=== PATIENT | female | born 1985 | race African-American/Black ===

== ENCOUNTER 2025-02-09 05:16 | Emergency (ER) | payer BC, SELFPAY ==
[2025-02-09] VITALS (20 sets, daily range): BP systolic 122–146; BP diastolic 81–91; PULSE 65–85; RESP 14–22; TEMP 36.6; O2SAT 96–100
--- OUTSIDE RECORDS SUMMARY | 2025-02-09 05:18 | XMS_ITS | Encounter Summary ---
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 Name Role Phone Alonzo Gibbons DO Primary Care Provider [phone] Audie Dominguez DPT Unavailable [phone] No, Physician Primary Care Provider [phone] Alonzo Gibbons DO Primary Care Provider [phone] Eleuterio Willard MD Primary Care Provider [phone] Xochilt Kruse NP Primary Care Provider [phone] Eleuterio Willard MD Primary Care Provider [phone] Reason for Visit * Reason Onset Date Comments Prior Auth 09/06/2019 Gabapentin 300mg Encounter Details Date Type Department Care Team (Late st Contact Info) Description 09/06/2019 Telephone [facility] [address] 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 Author CCM Chronic Pain Care Plan Chronic Care Management No change(07/12 9:03 AM SUPERVISOR [employer]) No Pamella Finley, LEANNA Note: Problem: Chronic Pain Goals: 1. Minimize further functional decline 2. Maximize quality of life 3. Control pain Strategies: - Activity/exercise program recommendation - Conservative stepwise pain medicine strategy with multi-disciplinary approach - Recommend healthy lifestyle strategies and compensatory methods as needed documented as of this encounter Visit Diagnoses Not on filedocumented in this encounter Care Teams Welding Setter Relationship Specialty Start Date End Date Alonzo Gibbons DO PCP - General Internal Medicine 07/05/19 10/04/19 No, Physician PCP - General 10/05/19 10/09/19 Alonzo Gibbons DO PCP - General 10/10/19 03/20/20 Eleuterio Willard MD PCP - General Family Medicine 03/21/20 06/05/20 Xochilt Kruse NP PCP - General 06/06/20 04/02/21 Eleuterio Willard MD PCP - General Family Medicine 04/03/21 Audie Dominguez DPT [id number] [facility] [address] [place] [address] Physical Therapist Physical Therapy 09/08/19 documented as of this encounter
--- OUTSIDE RECORDS SUMMARY | 2025-02-09 05:18 | XMS_ITS | Clinical Summary ---
Author Organization [facility] Address [address] [place] [address] Phone Care Team Providers Care [place]imer[place] Tower Loader Name Role Phone Unavailable Primary Care Provider Unavailabl e Allergies No known active allergies Medications Phentermine HCl 37.5 MG Capsule Take by mouth. Active Social History Tobacco Use Types Packs/Day Years Used Date Smoking Tobacco: Never Assessed Comments Unknown Sex and Gender Information Value Date Recorded Sex Assigned at Not on file Legal Sex Female 8:49 AM CDT Gender Identity Not on file Sexual Orientation Not on file Plan of Treatment Health Maintenance Due Date Last Done Comments Hepatitis C Virus (HCV) Screening 1985 TdaP Immunization 1985 Human Papillomavirus (HPV) Immunization (1 - 3-dose series) 2000 Hepatitis B Immunization (3 of 3 - 3-dose series) 05/11/2001 03/16/2001, 10/23/1999 Pap Smear 2006 Cervical Cancer Screening (CCS) 10/05/2015 HPV/Cotest 10/05/2015 SARS-COV-2 Immunization ( season) 2024 11/19/2020, 10/29/2020 Influenza Immunization (#1) 2025 Respiratory Syncytial Virus (RSV) Immunization (Adult) (1 - 1-dose 75+ series) 2060 DTaP/Tdap/Td Immunization Discontinued 2000, 03/21/1991, 08/05/1988, Additional history exists Meningococcal Immunization (ACWY) Aged Out No longer eligible based on patient's age to complete this topic Pneumococcal Immunization Combined Aged Out No longer eligible based on patient's age to complete this topic Rotavirus Immunization Aged Out No lo nger eligible based on patient's age to complete this topic
--- OUTSIDE RECORDS SUMMARY | 2025-02-09 05:18 | XMS_ITS | Clinical Summary ---
Author Organization [facility] Address Formerly [facility] [place] [address] Care Team Providers Care Sales Support Coordinator Name Role Phone Audie DominguezFranky DPT Unavailable [phone] Eleuterio Willard MD Primary Care Provider [phone] Allergies No known active allergies Medications CALCIUM ORAL Take 1 tablet by mouth daily Active iron bisgly,ps-FA-B-C #12-succ 65 mg-65 mg -1,000 mcg (24) tablet Take by mouth daily Active multivitamin capsule Take 1 capsule by mouth daily Active Denta 5000 Plus 1.1 % cream USE DIRECTED, TWICE A DAY 2 Active ergocalciferol (VITAMIN D) 50,000 unit capsuleIndicatio ns:Vitamin D deficiency Take 1 capsule (50,000 Units total) by mouth once a week 12 capsule 3 4 Active vitamin B complex capsule Take 1 capsule by mouth daily Active clobetasoL (CLOBEX) 0.05 % shampoo PLEASE SEE ATTACHED FOR DETAILED DIRECTIONS 5 Active spironolactone (ALDACTONE) 100 mg tablet TAKE ONE TABLET BY MOUTH DAILY WITH A FULL GLASS OF WATER. 5 Active norethindrone-et hinyl estradiol-iron (Loestrin Fe 1.5/30, 28-Day,) 1.5 mg-30 mcg per tablet Take one tablet PO q daily. Skip placebo week and go onto next pill pack. 28 tablet 13 5 Active fluconazole (DIFLUCAN) 150 mg tablet Take 1 tablet (150 mg total) by mouth every 3 (three) days 3 tablet 5 Active Additional Information Patient not taking.Reported on 12/27/2024 phentermine-topi ramate 11.25-69 mg capsule, ER multiphase 24 hrIndications:Cl ass 3 severe obesity due to excess calories without serious comorbidity with body mass index (BMI) of 40.0 to 44.9 in adult Take 1 tablet by mouth daily 30 capsule 2 5 03/27/20 25 Active phentermine 15 mg capsuleIndicatio ns:Class 3 severe obesity due to excess calories without serious comorbidity with body mass index (BMI) of 40.0 to 44.9 in adult Take 1 capsule (15 mg total) by mouth every morning 30 capsule 2 5 04/16/20 25 Active topiramate (TOPAMAX) 25 mg tabletIndication s:Class 3 severe obesity due to excess calories without serious comorbidity with body mass index (BMI) of 40.0 to 44.9 in adult Take 1 tablet (25 mg total) by mouth 2 (two) times a day 60 tablet 2 5 04/16/20 25 Active Active Problems Problem Noted Date Diagnosed Date Vitamin D deficiency 11/03/2022 Chronic vaginitis 11/03/2022 Acute pain of left knee 02/19/2022 Assessment & Plan (02/19/2022 3:46 PM CDT): Overall Condition Chronic Condition: Uncontrolled. Treatment: New Medication: Medroldose pack, Imaging: Consider Xray if symptoms persisit. and Referral: Consider Physical Therapy. Follow up PRN Disorder of both eustachian tubes 02/19/2022 Assessment & Plan (02/19/2022 3:45 PM CDT): Overall Condition New Acute Problem. Treatment: New Medication: MedroldosePack. If hearing doesn't improve, consider ENT. Follow up in 6 months Vaginal discharge 02/17/2022 Assessment & Plan (02/17/2022 6:23 PM CDT): Will send swab for pathology evaluation. Will notify pt of results of this and blood tests as they become available. Routine screening for STI (sexually transmitted infection) 02/17/2022 Frequency of urination 01/01/2022 Assessment & Plan (01/01/2022 4:19 PM CDT): Acute-obtain urine sample for POCT, + for blood, on menses, see plan of care for hematuria. Epigastric pain 01/01/2022 Assessment & Plan (01/01/2022 4:24 PM CDT): Acute-advised to eat bland foods and avoid foods that precipitate symptoms. Informed can take Pepcid AC once or twice daily 1/2 hour before meals for symptom management. Instructed to go to ER for worsening or new symptoms, to follow-up with PCP if symptoms continue. Acute right lower quadrant pain 01/01/2022 Assessment & Plan (01/01/2022 4:25 PM CDT): Recent onset-ordered stat lab work. A CT of abdomen and pelvis was ordered, advised should be receiving a call to schedule test. Encouraged to eat bland foods and stay hydrated. Informed can take probiotic daily for diarrhea. Instructed to go to ER for worsening or new symptoms, to follow-up with PCP if symptoms continue. Anorexia 01/01/2022 Assessment & Plan (01/01/2022 4:25 PM CDT): Recent onset-ordered stat lab work. A CT of abdomen and pelvis was ordered, advised should be receiving a call to schedule test. Encouraged to eat bland foods and stay hydrated. Informed can take Pepcid AC once or twice daily 1/2 hour before meals for epigastric pain. Instructed to go to ER for worsening or new symptoms, to follow-up with PCP if symptoms continue. Diarrhea 01/01/2022 Assessment & Plan (01/01/2022 4:23 PM CDT): Acute-advised to eat bland foods and avoid foods that precipitate symptoms. Informed can take a daily probiotic for symptom management. Instructed to go to ER for worsening or new symptoms, to follow-up with PCP if symptoms continue. Hematuria 01/01/2022 Assessment & Plan (01/01/2022 4:18 PM CDT): New dewxhcy-cm-zrapmw urine test + for blood, likely menstrual, sent for a urine culture due to symptoms of abdominal pain and urinary frequency. Tremor, unspecified 10/14/2021 Mild episode of recurrent major depressive disor geoff 10/14/2021 Assessment & Plan (10/14/2021 10:06 AM CDT): Overall Condition Chronic Condition: Uncontrolled and New Diagnosis. Treatment: New Medication: Lexapro, Referral: Psych Counselling and Recommended Therapeutic Lifestyle Modification Follow up in 6 months Chest pain 04/03/2021 Assessment & Plan (04/03/2021 4:18 PM CDT): Atypical chest pain likely noncardiac related. However we will have Cardiology consult consider a stress test or Holter monitor. EKG was read unremarkable for any acute ST changes. Normal sinus rhythm. Tachycardia 04/03/2021 Assessment & Plan (04/03/2021 4:18 PM CDT): Patient had measured tachycardia multiple location however patient denies of having any palpitation. Patient also been having atypical chest pain for last 3 weeks. Will do Holter monitor rule out any arrhythmias. Abnormal weight gain 03/04/2020 Assessment & Plan (03/04/2020 11:55 AM CDT): Overall Condition: New Acute Problem Treatment: New Medication: Phentermine. Follow up in 1 month Atypical glandular cells of undetermined significance (ANDREI) on cervical Pap smear 11/09/2019 Papanicolaou smear of cervix with positive high risk human papilloma virus (HPV) test 11/09/2019 s/p right L5-S1 microdiscectomy on 10/10/[address] 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 Uncontrolled. Goal: 175lb Recommend Nutritional every other Wednesday Seminar. Recommended Medication :Increase Qsymia 11.25mg Assessment & Plan (06/02/2021 8:32 AM CDT): Notes: Minimal/ sheeba-operative risk for Mild Risk Surgery. Medically clear for Bariatric surgery on Tentative Overal Risk Factors Dx: Morbid Obesity. Recommedations: Pending Labs prior to surgery: WNL. pending EKG prior to Surgery: Not Recommneded. Referral clearance needed: None. 07/14/2012 Resolved Problems Problem Noted Date Diagnosed Date Resolved Date History of classical section 07/27/2012 09/25/2019 Overview (08/14/2019): 12/2011 classical documented for breech, and incompetent cervix Encounters Date Type Department Care Team Description 12/27/2024 2:15 PM CDT Office Visit [facility] Family Medicine at [address] [place] [address] Eleuterio Willard MD Class 3 severe obesity due to excess calories without serious comorbidity with body mass index (BMI) of 40.0 to 44.9 in adult ([facility]) (Primary Dx) 12/19/2024 Orders Only [facility] Obstetrical Gynecology [address] [place] [address] [address] [place] [phone] Rima Diana MD 12/18/2024 1:39 PM CDT - 12/18/2024 11:59 PM CDT Hospital Encounter [facility] Office Building [address] [place] [phone] Well woman exam with routine gynecological exam; Vaginal itching; Screening for STDs (sexually transmitted diseases) Discharge Disposition: Discharge to home or self care 12/18/2024 11:00 AM CDT Office Visit [facility] Obstetrical Gynecology [address] [place] [phone] Rima Diana MD Well woman exam with routine gynecological exam (Primary Dx); Vaginal itching; Screening for STDs (sexually transmitted diseases) 12/18/2024 Results Follow-Up [facility] Obstetrical Gynecology [address] [place] [phone] Rima Diana MD Vaginitis panel Vaginal, Pap and High Risk HPV and Genotyping (Cytology Component) 12/06/2024 Results Follow-Up [facility] Obstetrical Gynecology [address] [place] [address] [address] [place] [phone] Rima Diana MD Urine culture Urine, clean voided, N. gonorrhoeae/C. trachomatis Amplification Vaginal, Vaginitis panel Vaginal 12/05/2024 11:24 AM CDT - 12/05/2024 11:59 PM CDT Hospital Encounter [facility] Office Building [address] [place] [address] Vaginal itching Discharge Disposition: Discharge to home or self care 12/05/2024 10:00 AM CDT Clinical Support [facility] Obstetrical Gynecology [address] [place] [phone] Vaginal itching (Primary Dx) 11/23/2024 Telephone [facility] Family Medicine at [place] [address] [facility] [address] [place] [phone] Eleuterio Willard MD Prior Auth (PA on QSYMIA) from Last 3 Months Immunizations Immunization Administration Dates Next Due DTP 03/21/1991, 9,07/11/1986,04/18,1985 Hep A, Adult 06/10/2009 Hep B Vaccine 06/10/2009 Hep B, Unspecified 03/16/2001,10/23/1999 Influenza, Trivalent, Preser vative Free, Intramuscular 04/27/2024 Influenza, Unspecified 04/02/2024(Deferr ed: Patient decision),06/17/2022,06/02/2019,2012 MMR 03/21/1991,03/26/1989 OPV 03/21/1991, 9,07/11/1986,04/18,1985 Pfizer Sars-Cov-2 Bivalent V accination (12+ YRS) 07/20/2022(Deferred: Patient Refused) Pfizer Sars-Cov-2 Bivalent V accination (5-11 YRS) 07/20/2022(Deferred: Patient Refused) Td, adsorbed 03/31/2001 Tdap 07/19/2024,08/16/2012 Tetanus toxoid, adsorbed 06/10/2009 Surgical History Surgery Date Site/Laterality Comments TUBAL LIGATION WRIST SURGERY COMBINED LAMINECTOMY AND JOSE GUADALUPE RODISECTOMY OF THORACIC / LUMBAR SPINE Medical History Medical History Date Comments Leg pain Weakness Muscle pain Loss of coordination Chronic pain disorder Low back pain DDD (degenerative disc disease), lumbar History of transfusion 08/2012 post misc arriage Family History Medical History Relation Name Comments No Known Problems Brother Diabetes Father Ana Plunkett No Known Problems Mother No Known Problems Sister Breast cancer Neg Hx Ovarian cancer Neg Hx Uterine cancer Neg Hx Relation Name Status Comments Brother Alive Father Ana Plunkett Alive Mother Alive Sister Alive Social History Tobacco Use Types Packs/Day Years Used Date Smoking Tobacco: Never Smokeless Tobacco: Never Tobacco Cessation:Counseling Given: Not Answered Alcohol Use Standard Drinks/Week Comments Yes 0 (1 standard drink = 0.6 oz pur e alcohol) AUDIT-C Answer Date Recorded Q1: How often do you have a drink containing alc ohol? Monthly or less 12/27/2024 Q2: How many drinks containi ng alcohol do you have on a typical day when you are drinking? 1 or 2 12/27/2024 Q3: How often do you have si x or more drinks on one occasion? Less than monthly 12/27/2024 PHQ-2 Answer Date Recorded PHQ-2 Total Score (If total score is 3 or more points, staff should administer the PHQ-9) 0 12/27/2024 PHQ-9 Answer Date Recorded PHQ-9 Total Score 0 12/27/2024 Comments No Sex and Gender Information Value Date Recorded Sex Assigned at Not on file Legal Sex Female 7:33 AM MOTHER'S HELPER Gender Identity Female 08/12/2021 12:04 PM MOTHER'S HELPER Sexual Orientation Straight 08/12/2021 12 :04 PM MOTHER'S HELPER Obstetrics History Para Term AB IAB SAB Ectopic Multiple Livin g Live Births 5 4 1 3 1 0 1 0 0 2 2 Date Outcome GA Total Labor Labor/2nd/3rd Weight Sex Type Anes PTL Gerda A1 A5 Name Clin SAB Term 2004 21w 0d Demis e Comments:PPROM at 18 w eeks, delivered stillborn 3 weeks later 2007 34w 0d Y Livin g Comments:PPROM at 32 w eeks 2011 25w 0d C-S j incis Spinal Livin g Comments:breech at 25 weeks with incompetent cervix Comments Last Filed Vital Signs Vital Sign Reading Time Taken Comments Blood Pressure 120/80 12/27/2024 2:25 PM CDT Pulse 86 12/27/2024 2:25 PM CDT Temperature 36.7 C (98.1 F) 12/27/2024 2:25 PM CDT Respiratory Rate 16 12/27/2024 2:25 PM CDT Oxygen Saturation 98% 12/27/2024 2:25 PM CDT Inhaled Oxygen Concentration - - Weight 115.4 kg (254 lb 6.4 oz) 12/27/2024 2:25 PM CDT Height 167.6 cm (5' 6) 12/27/2024 2:25 PM CDT Body Mass Index 41.06 12/27/2024 2:25 PM CDT Plan of Treatment Health Maintenance Due Date Last Done Comments Varicella Vaccines (1 of 2 - 13+ 2-dose series) 1998 Covid-19 Vaccine ( season) 2024 11/19/2020, 10/29/2020 Cervical Cancer Screening 12/18/20252024, 12/18/2024, 11/05/2023, Additional history exists Regular Well Visit/Exam 18-64 12/18/2025 12/18/2024, 11/08/2023, 11/05/2023, Additional history exists Depression Screening 12/27/2025 12/27/2024, 12/27/2024, 11/08/2023, Additional history exists DTaP/Tdap/Td Vaccine (8 - Td or Tdap) 07/19/2034 07/19/2024, 08/16/2012, 06/10/2009, Additional history exists Hepatitis B Screening Completed 06/10/2009 , 03/16/2001, 10/23/1999 Hepatitis C Screening Completed 02/19/2022, 013 Influenza Vaccine Completed 04/27/2024, , 06/02/2019, Additional history exists HPV Vaccines Aged Out No longer eligi ble based on patient's age to complete this topic Pneumococcal vaccine <65 Aged Out No longer eligible based on patient's age to complete this topic Goals Goal Patient Goal Type Associated Problems Recent Progress Patient-Stated? Author CCM Chronic Pain Care Plan Chronic Care Management No change(07/12 9:03 AM MOTHER'S HELPER) No Pamella Finley, LEANNA Note: Problem: Chronic Pain Goals: 1. Minimize further functional decline 2. Maximize quality of life 3. Control pain Strategies: - Activity/exercise program recommendation - Conservative stepwise pain medicine strategy with multi-disciplinary approach - Recommend healthy lifestyle strategies and compensatory methods as needed Procedures Procedure Name Priority Date/Time Associated Diagnosis Comments PAP AND HIGH RISK HPV, REFLEX TO GENOTYPING Routine 12/18/2024 11:35 AM CDT Well woman exam with routine gynecological exam HIGH RISK HPV DNA DETECTION WITH GENOTYPING Routine 12/18/2024 11:35 AM CDT Well woman exam with routine gynecological exam N. GONORRHOEAE/C. TRACHOMATIS AMPLIFICATION Routine 12/18/2024 11:35 AM CDT Screening for STDs (sexually transmitted diseases) VAGINITIS PANEL Routine 12/18/2024 11:35 AM CDT Vaginal itching VAGINITIS PANEL Routine 12/05/2024 10:35 AM CDT Vaginal itching N. GONORRHOEAE/C. TRACHOMATIS AMPLIFICATION Routine 12/05/2024 10:35 AM CDT Vaginal itching URINE CULTURE Routine 12/05/2024 10:35 AM CDT Vaginal itching HEPATITIS PANEL, ACUTE Routine 02/19/2022 3:01 PM CDT Routine screening for STI (sexually transmitted infection) from Last 3 Months or Most Recently Relevant to Health Maintenance Results * High Risk HPV DNA Detection with Genotyping (Molecular component) (12/18/2024 11:35 AM CDT) HPV HR 16 Not Detected Not Detected [facility] Comment:Testing performed by : [facility], [address] [place]., [address] HPV HR 18 Not Detected Not Detected [facility] Comment:Testing performed by : [facility], [address] [place]., [address] HPV HR Non 16/18 Not Detected Not Detected [facility] Comment: Interpretive Data Nucleic acid amplification for detection of high-risk Human Papilloma virus (HPV) is performed by the Talita Ivy 6800 HPV test. This assay specifically detects HPV-16 and HPV-18 genotypes. The following HPV genotypes are detected as high-risk HPV: HPV-31, 33, 35, ,39, 45, 51, 52, 56, 58, 59, 66, and 68. This assay has been approved by the [place] Food and Drug Administration for detection of HPV in cervical specimens collected by a physician using an endocervical brush/spatula or cervical broom and placed in the ThinPrep Pap Test PreservCyt collection containers. The performance characteristics of this test have been verified by the [facility] Molecular Infectious Disease laboratory. Correlate with separately reported cytology results, as applicable. Interpretive data last revised 23 Testing performed by: [facility], [address] [place]., [address] Endocervical 12/18/2024 11:3 5 AM CDT 12/19/2024 8:49 AM CDT Narrative CERNER - 12/19/2024 7:06 PM CDT Clinical history and diagnosis->screening Testing type->Screening Last menstrual period (date if known)->12/01/24 Rima Diana MD LAB BODY FLUIDS AND STOOL S ORDERABLES Final Result [facility] [address] [facility] Department [place] [address] [facility] * Pap and High Risk HPV and Genotyping (Cytology Component) (12/18/2024 11:35 AM CDT) Thin prep (Pap test) 12/18/2024 11:35 AM CDT 12/19/2024 8:06 AM CDT Narrative [facility] - 12/26/2024 9:09 AM CDT EPIC results best viewed via link to PDF [facility] [place] [address] Note to Patients: This report may contain a detailed description of human tissue sent by a health care provider to the laboratory for pathologic evaluation. The content of this report is essential for diagnosis and may provide important critical findings. This information may be unfamiliar to patients to review without a medical professional present. It is advised that the patient review this report in the presence of a health care provider who can answer questions and explain the details. CYTOPATHOLOGY REPORT FINAL Patient Name: ISAIAH ALEJO Gender: Lu : 1985 (Age: 39) Address: [address] [place] [phone] Hospital #: [id number] Service: DEFAULT Location: Patient Type: [facility] SPECIMEN Taken: 12/18/2024 Received: 12/19/2024 Accessioned: 12/19/2024 Reported: 12/26/2024 Physician(s): Rima Diana M.D. FINAL INTERPRETATION SOURCE OF SPECIMEN Liquid based Thin Prep pap with HPV: STATEMENT OF ADEQUACY - Satisfactory for evaluation - Endocervical cells/transformation zone sample present GENERAL CATEGORIZATION: - Negative for squamous intraepithelial lesion or malignancy Comments (Normal-Negative for High Risk HPV) HPV HR 16- Not detected HPV HR 18-Not detected HPV HR non 16/18- Not detected Interpretive Data Nucleic acid amplification for detection of high-risk Human Papilloma virus (HPV) is performed by the Talita Ivy 6800 HPV test. This assay specifically detects HPV- 16 and HPV-18 genotypes. The following HPV genotypes are detected as high-risk HPV: HPV-31, 33, 35, 39, 45, 51, 52, 56, 58, 59, 66, and 68. This assay has been approved by the [place] Food and Drug Administration for detection of HPV in cervical specimens collected by a physician using an endocervical brush/spatula or cervical broom and placed in the ThinPrep Pap Test PreservCyt collection containers. The performance characteristics of this test have been verified by the [facility] Molecular Infectious Disease laboratory. Correlate with reported cytology results, as applicable. Interpretive data last revised 23 [facility]/12/26/2024 09:09 DEN Smallwood(ASCP) Report Electronically Reviewed and Signed Out By DEN Smallwood(ASCP) 12/26/2024 09:09:20 Cervicovaginal Cytology (Pap Test) Disclaimer: The Pap test is a screening test used to detect cervical cancer and its precursors; it is not a diagnostic procedure. False negative and false positive results do occur. Pap test results should be interpreted in the context of pertinent clinical information and biopsy results as indicated. [facility] Clinical Laboratory Improvement Amendments (CLIA) mandate that cytologic and histologic results be correlated for laboratory quality lead & improvement standards. FOR ALL HIGH-GRADE CASES we request submission of follow-up histological material and/or reports that have not been previously provided so that we may fulfill said required standards. Gross Description A. Liquid based Thin Prep pap with HPV: Cervical/vaginal - Screening ThinPrep Clinical Diagnosis and History Last Menstrual Period: 12/01/24 The patient is a 39 year old female with screening. Report Images and scanned documents, if included only viewable in PDF version The performance characteristics of some immunohistochemical stains, in-situ hybridization and fluorescence in-situ hybridization tests and immunophenotyping by flow cytometry cited in this report (if any) were determined by the Surgical Pathology Department at [facility] as part of an ongoing customer quality specialist program and in compliance with federally mandated regulations drawn from the Clinical Laboratory Improvement Act of 1988 (CLIA '88). Some of these tests rely on the use of analyte specific reagents and are subject to specific labeling requirements by the [place] Food and Drug Administration. Such diagnostic tests may only be performed in a facility that is certified by the Department of Health and Human Services as a high complexity laboratory under CLIA '88. The FDA has determined that such clearance or approval is not necessary. This test is used for clinical purposes. It should not be regarded as investigational or for research. Nevertheless, federal rules concerning the medical use of analyte specific reagents require that the following disclaimer be attached to the report: This test was developed and its performance characteristics determined by the Surgical Pathology Department of [facility]. It has not been cleared or approved by the U. S. Food and Drug Administration. us Rima Diana MD LAB CYTOLOGY ORDERABLES F inal Result [facility] * N. gonorrhoeae/C. trachomatis Amplification Endocervical (12/18/2024 11:35 AM CDT) C. trachomatis Not Detected [facility] Comment:Testing performed by : [facility], [address] [place] [address] N. gonorrhoeae Not Detected [facility] Comment: Interpretive Data This assay detects Chlamydia trachomatis and Neisseria gonorrhoeae by nucleic acid amplification testing (NAAT). This assay has been cleared by the [place] Food and Drug administration. The performance characteristics of this test have been verified by the [facility] Molecular Infectious Disease laboratory. The performance characteristics of this test have not been evaluated in individuals less than 14 years of age. Current Interpretive Data was last revised on 2023. Testing performed by: [facility], [address] [place] [address] Endocervical (None) 12/19/19 11:35 AM CDT 12/18/2024 9:17 PM CDT us Rima Diana MD LAB MICROBIOLOGY - GENERA L ORDERABLES Final Result Performing Organization Address City/[facility]/ZIP Co de Phone Number [facility] Department [place] [address] [facility] * (ABNORMAL) Vaginitis panel Vaginal (12/18/2024 11:35 AM CDT) Bacterial Vaginosis Not Detected Not Detected Comment: A negative result does not preclude a possible infection. Results should be considered in conjunction with clinical presentation to determine the disease status. Testing performed by: [address] [address] [facility] Detected(A) Not Detected [facility] Comment: Roseanne species can be present as commensal organisms in women; results should be considered in conjunction with clinical presentation to determine the disease status. Testing performed by: [address] [address] Roseanne glabrata/ krusei Not Detected Not Detected GEORGINA Comment:Testing performed by : [address] [address] Trichomonas DNA Not Detected Not Detected GEORGINA Comment:Testing performed by : [address] [address] Vaginal 12/18/2024 11:3 5 AM CDT 12/18/2024 5:54 PM CDT [facility] - 12/18/2024 7:27 PM CDT The Cepheid Xpert Xpress MVP test detects DNA targets from anaerobic bacteria associated with bacterial vaginosis, Roseanne species associated with vulvovaginal candidiasis, and Trichomonas vaginalis by nucleic acid amplification testing (NAAT). Results should be interpreted in conjunction with other clinical data. This test cannot be used to assess therapeutic success or failure because target nucleic acids may persist following antimicrobial therapy. This test has been cleared by the [place] Food and Drug Administration to aid in the diagnosis of vaginal infections in symptomatic women ages 14 and older. The performance characteristics of this test have been verified by the [facility]. Rima Diana MD LAB MICROBIOLOGY - GENERA L ORDERABLES Final Result GEORGINA [address] [facility] Department [place] [address] * N. gonorrhoeae/C. trachomatis Amplification Vaginal (12/05/2024 10:35 AM CDT) Pathologist [facility] C. trachomatis Not Detected [facility] Comment:Testing performed by : [facility], [address] [place] [address]., [address] N. gonorrhoeae Not Detected GEORGINA Comment: Interpretive Data This assay detects Chlamydia trachomatis and Neisseria gonorrhoeae by nucleic acid amplification testing (NAAT). This assay has been cleared by the [place] Food and Drug administration. The performance characteristics of this test have been verified by the [facility] Molecular Infectious Disease laboratory. The performance characteristics of this test have not been evaluated in individuals less than 14 years of age. Current Interpretive Data was last revised on 2023. Testing performed by: [facility], [address] [place] [address]., [address] Vaginal (None) 12/05/2024 10 :35 AM CDT 12/05/2024 7:05 PM CDT Rima Diana MD LAB MICROBIOLOGY - GENERA L ORDERABLES Final Result Performing Organization Address [facility] Co de Phone Number [id number] Department [place] [address] [facility] * (ABNORMAL) Vaginitis panel Vaginal (12/05/2024 10:35 AM CDT) Pathologist [facility] Bacterial Vaginosis Not Detected Not Detected Comment: A negative result does not preclude a possible infection. Results should be considered in conjunction with clinical presentation to determine the disease status. Testing performed by: [address] [address] Roseanne group Detected(A) Not Detected GEORGINA Comment: Roseanne species can be present as commensal organisms in women; results should be considered in conjunction with clinical presentation to determine the disease status. Testing performed by: [address] [address] Roseanne glabrata/ krusei Not Detected Not Detected GE[facility]GINA Comment:Testing performed by : [facility], [address] [place] [address]., [address] Trichomonas DNA Not Detected Not Detected GEORGINA Comment:Testing performed by : [facility], [address] [place] [address]., [address] Vaginal 12/05/2024 10:3 5 AM CDT 12/05/2024 2:36 PM CDT Narrative [facility] - 12/05/2024 4:30 PM CDT The CepIS Decisions Xpert Xpress MVP test detects DNA targets from anaerobic bacteria associated with bacterial vaginosis, Roseanne species associated with vulvovaginal candidiasis, and Trichomonas vaginalis by nucleic acid amplification testing (NAAT). Results should be interpreted in conjunction with other clinical data. This test cannot be used to assess therapeutic success or failure because target nucleic acids may persist following antimicrobial therapy. This test has been cleared by the [place] Food and Drug Administration to aid in the diagnosis of vaginal infections in symptomatic women ages 14 and older. The performance characteristics of this test have been verified by the [facility]. Rima Diana MD LAB MICROBIOLOGY - GENERA L ORDERABLES Final Result GEORGINA [address] [facility] Department [place] [address] * (ABNORMAL) Urine culture Urine, clean voided (12/05/2024 10:35 AM CDT) Report Final Report: Less than 100,000 colonies/mL (clinically insignificant growth based on current clinical standards) Includes the following: Less than 100,000 colonies/mL Streptococcus agalactiae (Group B Streptococci) * * * * * * * * * * * * * * * * * * * * Resistance to penicillin in Group B Streptococcus has not been reported. Group B Streptococci are universally susceptible to beta-lactam antibiotics and vancomycin. Routine susceptibility testing is not performed. In penicillin allergic patients, please contact the laboratory at [phone] to request susceptibility testing * * * * * * * * * * * * * * * * * * * * This laboratory routinely screens urine cultures for any amount of Group B Streptococcus in reproductive age women. Recovery of this isolate may be significant in women, however, the recovery of this organism in small quantities in non- women represents contamination with periurethral lacey. (.) Comment:Testing performed by : [facility], [address] [place]., [address] Organism (CLINICALLY INSIGNIFICANT GROWTH [facility] Organism STREPTOCOCCUS AGALACTIAE (GROUP B STREPTOCOCCI) [facility] Urine, clean voided 12/05/2024 10:35 AM CDT 12/05/2024 6:53 PM CDT Narrative [facility] - 12/07/2024 12:31 AM CDT Testing performed by [facility] Microbiology Laboratory ([phone]) Rima Diana MD LAB MICROBIOLOGY - GENERA L ORDERABLES Final Result [facility] [address] [facility] Department [place] [address] * Hepatitis panel, acute (02/19/2022 3:01 PM CDT) Hep A IgM Nonreactive Nonreactive [facility] Comment: Interpretive Data: If Hep A IgM Ab is reported as Equivocal, a new sample should be drawn in two weeks for testing. Current interpretive data was last revised on 19. Hep B core IgM Nonreactive Nonreactive [facility] Comment: Interpretive Data If HepB Core IgM Ab is reported as Equivocal, a new sample should be drawn in two weeks for testing. Current interpretive data was last revised on 19. Hep C Ab Nonreactive Nonreactive [facility] Comment: Interpretive Data Nonreactive: Antibodies to HCV not detected. Does NOT exclude the possibility of recent exposure to HCV. Equivocal: Equivocal for HCV antibodies. Supplemental molecular testing will be automatically performed to determine infection status in accordance with current CDC screening recommendations. Reactive: Positive for HCV antibodies. This may represent current or past HCV infection. Supplemental molecular testing will be automatically performed to determine current infection status in accordance with current CDC screening recommendations. Interpretive data was last revised on 2019. HepBsAg Nonreactive Nonreactive GEORGINA LORENZO Blood 02/19/2022 3:01 PM CDT 02/19/2022 7:01 PM CDT Anita MILLS LAB MICROBIOLOGY - GENERAL ORDERABLES Final Result GEORGINA [address] [facility] Department [place] [address] from Last 3 Months or Most Recently Relevant to Health Maintenance Insurance [email or web address] ACCESS [email or web address] ACCESS [facility] ACCESS CHOICE Advance Directives For more information, please contact: [phone] * Full Code (Latest Code Status on File) Date Activated Date Inactivated Comments 10/10/2019 9:58 PM 10/11/2019 6:55 PM Care Teams Sales Support Coordinator Relationship Specialty Start Date End Date Eleuterio Willard MD [address] [facility] [address] [address] PCP - General Family Medicine 04/03/21 Audie Dominguez, DPT [address] [facility] [address] [address] Physical Therapist Physical Therapy 09/08/19
--- OUTSIDE RECORDS SUMMARY | 2025-02-09 05:18 | XMS_ITS | Referral Summary ---
Author Organization [facility] Address [address] [place] [address] Care Team Providers Care Gas Plant Operator Name Role Phone Audie Dominguez DPT Unavailable [phone] Eleuterio Willard MD Primary Care Provider [phone] Encounters Date Type Department Care Team Description 12/27/2024 2:15 PM CDT Office Visit [facility] Medical Group Family Medicine at [address] [place] [address] Eleuterio Willard MD Class 3 severe obesity due to excess calories without serious comorbidity with body mass index (BMI) of 40.0 to 44.9 in adult (HCC) (Primary Dx) 12/19/2024 Orders Only [facility] Medical Group Obstetrical Gynecology [address] [place] [address] [place] [phone] Rima Diana MD 12/18/2024 Results Follow-Up [facility] Group Obstetrical Gynecology [address] [place] [address] [address] [place] [phone] Rima Diana MD Vaginitis panel Vaginal, Pap and High Risk HPV and Genotyping (Cytology Component) 12/18/2024 1:39 PM CDT - 12/18/2024 11:59 PM CDT Hospital Encounter [facility] Medical Office Building [address] [place] [address] Well woman exam with routine gynecological exam; Vaginal itching; Screening for STDs (sexually transmitted diseases) Discharge Disposition: Discharge to home or self care 12/18/2024 11:00 AM CDT Office Visit [facility] Obstetrical Gynecology [address] [place] [phone] Rima Diana MD Well woman exam with routine gynecological exam (Primary Dx); Vaginal itching; Screening for STDs (sexually transmitted diseases) 12/06/2024 Results Follow-Up [facility] Obstetrical Gynecology [address] [facility] [address] [place] [phone] Rima Diana MD Urine culture Urine, clean voided, N. gonorrhoeae/C. trachomatis Amplification Vaginal, Vaginitis panel Vaginal 12/05/2024 11:24 AM CDT - 12/05/2024 11:59 PM CDT Hospital Encounter [facility] Medical Office Building [address] [place] [address] Vaginal itching Discharge Disposition: Discharge to home or self care 12/05/2024 10:00 AM CDT Clinical Support [facility] Obstetrical Gynecology [address] [place] [phone] Vaginal itching (Primary Dx) 11/23/2024 Telephone [facility] [place] [address] [facility] [address] [place] [phone] Eleuterio Willard MD Prior Auth ([place] on QSYMIA) from Last 3 Months Allergies No known active allergies Medications CALCIUM [...] & Plan (01/01/2022 4:18 PM CDT): New [id number] urine test + for blood, likely menstrual, [...] classical documented for breech, and incompetent cervix Immunizations Immunization Administration Dates Next Due DTP [...] 03/31/2001 Tdap 07/19/2024,08/16/2012 Tetanus toxoid, adsorbed 06/10/2009 Social History Tobacco Use Types Packs/Day Years [...] on file Legal Sex Female 7:33 AM PLATFORM CONSULTANT Gender Identity Female 08/12/2021 12:04 PM PLATFORM CONSULTANT Sexual Orientation Straight 08/12/2021 12 :04 PM PLATFORM CONSULTANT Last Filed Vital Signs Vital Sign Reading [...] 12/27/2024 2:25 PM CDT Plan of Treatment Not on file Goals Goal Patient Goal Type Associated Problems Recent Progress Patient-Stated? Author CCM Chronic Pain Care Plan Chronic Care Management No change(07/12 9:03 AM PLATFORM CONSULTANT) No Pamella Finley RN Note: Problem: Chronic Pain Goals: 1. Minimize [...] HPV HR 16 Not Detected Not Detected [facility] Comment:Testing performed by : [facility], [address] [place]., [address] HPV HR 18 Not Detected Not Detected GEORGINA LORENZO Comment:Testing performed by : [facility], [address] [place]., [address] HPV HR Non 16/18 Not Detected Not Detected GEORGINA LORENZO Comment: Interpretive Data Nucleic acid amplification for [...] this test have been verified by the [facility] Molecular Infectious Disease laboratory. Correlate with separately reported cytology results, as applicable. Interpretive data last revised 23 Testing performed by: [facility], [address] [place]., [address] Endocervical 12/18/2024 11:3 5 AM CDT 12/19/2024 8:49 AM CDT Narrative GEORGINA LORENZO - 12/19/2024 7:06 PM CDT Clinical history and diagnosis->screening Testing type->Screening Last menstrual period (date if known)->12/01/24 Rima Diana MD LAB BODY FLUIDS AND STOOL S ORDERABLES Final Result GEORGINA [address] [facility] [place] [address] [facility] * Pap and High Risk HPV and Genotyping (Cytology Component) (12/18/2024 11:35 AM CDT) Thin prep (Pap test) 12/18/2024 11:35 AM CDT 12/19/2024 8:06 AM CDT Narrative PATHOLOGY [facility] - 12/26/2024 9:09 AM CDT EPIC results best viewed via link to PDF [facility] [place] [address] Note to Patients: This report may contain [...] REPORT FINAL Patient Name: ISAIAH ALEJO Gender: F : 1985 (Age: 39) Address: [address] [place] [phone] Hospital #: [id number] Service: DEFAULT Location: Patient Type: [facility] SPECIMEN Taken: 12/18/2024 Received: 12/19/2024 Accessioned: 12/19/2024 [...] this test have been verified by the [facility] Molecular Infectious Disease laboratory. Correlate with reported cytology results, as applicable. Interpretive data last revised 23 [facility]/12/26/2024 09:09 DEN [place](ASCP) Report Electronically Reviewed [...] clinical information and biopsy results as indicated. [facility] Clinical Laboratory Improvement Amendments (CLIA) mandate that cytologic and histologic results be correlated for laboratory quality improvement specialist & improvement standards. FOR ALL HIGH-GRADE CASES [...] determined by the Surgical Pathology Department at [facility] as part of an ongoing quality control industrial engineer program and in compliance with federally mandated [...] determined by the Surgical Pathology Department of [facility]. It has not been cleared or approved by the [place]. S. Food and Drug Administration. Rima Diana MD LAB CYTOLOGY ORDERABLES F inal Result PATHOLOGY [facility] * N. gonorrhoeae/C. trachomatis Amplification Endocervical (12/18/2024 11:35 AM CDT) C. trachomatis Not Detected [facility] Comment:Testing performed by : [facility], [address] [place] [address], [address] N. gonorrhoeae Not Detected GEORGINA LORENZO Comment: Interpretive Data This assay detects Chlamydia trachomatis and Neisseria gonorrhoeae by nucleic acid amplification testing (NAAT). This assay has been cleared by the [place] Food and Drug administration. The performance characteristics of this test have been verified by the [facility] Molecular Infectious Disease laboratory. The performance characteristics of this test have not been evaluated in individuals less than 14 years of age. Current Interpretive Data was last revised on 2023. Testing performed by: [facility], [address] [place] [address]., [address] Endocervical (None) 12/19/19 11:35 AM CDT 12/18/2024 9:17 PM CDT Rima Diana MD LAB MICROBIOLOGY - GENERA L ORDERABLES Final Result GEORGINA LORENZO [address] [facility] [place] [address] [facility] * (ABNORMAL) Vaginitis panel Vaginal (12/18/2024 11:35 AM CDT) Pathologist [facility] Bacterial Vaginosis Not Detected Not Detected Comment: A negative result does not preclude a possible infection. Results should be considered in conjunction with clinical presentation to determine the disease status. Testing performed by: [address] [address] Roseanne group Detected(A) Not Detected [facility] Comment: Roseanne species can be present as commensal organisms in women; results should be considered in conjunction with clinical presentation to determine the disease status. Testing performed by: [address] [address] Roseanne glabrata/ krusei Not Detected Not Detected GEORGINA Comment:Testing performed by : [address] [address] Trichomonas DNA Not Detected Not Detected [facility] Comment:Testing performed by : [address] [address] Vaginal 12/18/2024 11:3 5 AM CDT 12/18/2024 5:54 PM CDT Narrative [facility] - 12/18/2024 7:27 PM CDT The CepFast PCR Diagnosticsid Xpert Xpress MVP test detects DNA targets [...] this test have been verified by the [facility]. us Rima Diana MD LAB MICROBIOLOGY - GENERA L ORDERABLES Final Result GEORGINA [address] [facility] [place] [address] * N. gonorrhoeae/C. trachomatis Amplification Vaginal (12/05/2024 10:35 AM CDT) Pathologist [facility] C. trachomatis Not Detected [facility] Comment:Testing performed by : [facility], [address] [place] [address] N. gonorrhoeae Not Detected GEORGINA Comment: Interpretive Data This assay detects Chlamydia trachomatis and Neisseria gonorrhoeae by nucleic acid amplification testing (NAAT). This assay has been cleared by the [place] Food and Drug administration. The performance characteristics of this test have been verified by the [facility] Molecular Infectious Disease laboratory. The performance characteristics of this test have not been evaluated in individuals less than 14 years of age. Current Interpretive Data was last revised on 2023. Testing performed by: [facility], [address] [place]., [address] Vaginal (None) 12/05/2024 10 :35 AM CDT 12/05/2024 7:05 PM CDT Rima Diana MD LAB MICROBIOLOGY - GENERA L ORDERABLES Final Result GEORGINA [address] [facility] [place] [address] [facility] * (ABNORMAL) Vaginitis panel Vaginal (12/05/2024 10:35 AM CDT) Pathologist [facility] Bacterial Vaginosis Not Detected Not Detected Comment: A negative result does not preclude a possible infection. Results should be considered in conjunction with clinical presentation to determine the disease status. Testing performed by: [address] [address] Roseanne group Detected(A) Not Detected [facility]A Comment: Roseanne species can be present as commensal organisms in women; results should be considered in conjunction with clinical presentation to determine the disease status. Testing performed by: [address] [address] Roseanne glabrata/ krusei Not Detected Not Detected [facility]A Comment:Testing performed by : [address] [address] Trichomonas DNA Not Detected Not Detected [facility]A Comment:Testing performed by : [address] [place] [address] Vaginal 12/05/2024 10:3 5 AM CDT 12/05/2024 2:[address] [facility] GEORGINA - 12/05/2024 4:30 PM CDT The Cepheid Xpert Xpress MVP [...] this test have been verified by the [facility]. Rima Diana MD LAB MICROBIOLOGY - GENERA L ORDERABLES Final Result GEORGINA [address] [facility] [place] [address] * (ABNORMAL) Urine culture Urine, [...] allergic patients, please contact the laboratory at [phone] to request susceptibility testing * * * [...] periurethral lacey. (.) Comment:Testing performed by : [facility], [address] [facility], [place]., [address] Organism (CLINICALLY INSIGNIFICANT GROWTH [facility] Organism STREPTOCOCCUS AGALACTIAE (GROUP B STREPTOCOCCI) [facility] Urine, clean voided 12/05/2024 10:35 AM CDT 12/05/2024 6:53 PM CDT Narrative [facility] - 12/07/2024 12:31 AM CDT Testing performed by [facility] Microbiology Laboratory ([phone]) Rima Diana MD LAB MICROBIOLOGY - GENERA L ORDERABLES Final Result [facility] [address] [facility] [place] [address] * Hepatitis panel, acute (02/19/2022 3:01 PM CDT) Hep A IgM Nonreactive Nonreactive [facility] Comment: Interpretive Data: If Hep A IgM Ab is reported as Equivocal, a new sample should be drawn in two weeks for testing. Current interpretive data was last revised on 19. Hep B core IgM Nonreactive Nonreactive [facility] Comment: Interpretive Data If HepB Core IgM Ab is reported as Equivocal, a new sample should be drawn in two weeks for testing. Current interpretive data was last revised on 19. Hep C Ab Nonreactive Nonreactive [facility] Comment: Interpretive Data Nonreactive: Antibodies to [...] last revised on 2019. HepBsAg Nonreactive Nonreactive [facility] Blood 02/19/2022 3:01 PM CDT 02/19/2022 7:01 PM CDT Anita MILLS LAB MICROBIOLOGY - GENERAL ORDERABLES Final Result JONNER MH [address] [facility] [place] [address] from Last 3 Months or Most Recently Relevant to Health Maintenance Insurance ANTHEM ACCESS ANTHEM ACCESS ANTHEM ACCESS CHOICE Advance Directives For more information, please contact: [phone] * Full Code (Latest Code Status on File) Date Activated Date Inactivated Comments 10/10/2019 9:58 PM 10/11/2019 6:55 PM Care Teams Gas Plant Operator Relationship Specialty Start Date End Date Eleuterio Willard MD [address] [place] [address] [facility] [place] [address] PCP - General Family Medicine 04/03/21 Audie Dominguez, DPT [address] [facility] [place] [address] [facility] [place] [address] Physical Therapist Physical Therapy 09/08/19
--- OUTSIDE RECORDS SUMMARY | 2025-02-09 05:18 | XMS_ITS | Encounter Summary ---
Author Organization [facility] Healthcare Address [address] [place] [address] Care Team Providers Care Senior Staff Psychologist Name Role Phone Audie DominguezFranky DPT Unavailable [phone] Eleuterio Willard MD Primary Care Provider [phone] Encounter Details Date Type Department Care Team (Latest Contact Info) Description 12/18/2024 Results Follow-Up [facility] Obstetrical Gynecology [address] [phone] Rima Diana MD [facility] [address] Vaginitis panel Vaginal, Pap and High Risk HPV and Genotyping (Cytology Component) Social History Tobacco Use Types Packs/Day Years Used Date Smoking Tobacco: Never Smokeless Tobacco: Never Alcohol Use Standard Drinks/Week Comments Yes 0 (1 standard drink = 0.6 oz pur e alcohol) AUDIT-C Answer Date Recorded Q1: How often do you have a drink containing alc ohol? Monthly or less 08/24/2024 Q2: How many drinks containi ng alcohol do you have on a typical day when you are drinking? 1 or 2 08/24/2024 Q3: How often do you have si x or more drinks on one occasion? Less than monthly 08/24/2024 PHQ-2 Answer Date Recorded PHQ-2 Total Score (If total score is 3 or more points, staff should administer the PHQ-9) 0 11/08/2023 Comments No Sex and Gender Information Value Date Recorded Sex Assigned at Not on file Legal Sex Female 7:33 AM DESIGN CONSULTANT Gender Identity Female 08/12/2021 12:04 PM DESIGN CONSULTANT Sexual Orientation Straight 08/12/2021 12 :04 PM DESIGN CONSULTANT documented as of this encounter Miscellaneous Notes * Result Encounter Note - Latasha Hines MA - 12/26/2024 1:55 PM CDT Normal pap letter sent via [employer] documented in this encounter Plan of Treatment Not on file documented as of this encounter Goals Goal Patient Goal Type Associated Problems Recent Progress Patient-Stated? Author CCM Chronic Pain Care Plan Chronic Care Management No change(07/12 9:03 AM DESIGN CONSULTANT) No Pamella Finley, LEANNA Note: Problem: Chronic Pain Goals: 1. Minimize further functional decline 2. Maximize quality of life 3. Control pain Strategies: - Activity/exercise program recommendation - Conservative stepwise pain medicine strategy with multi-disciplinary approach - Recommend healthy lifestyle strategies and compensatory methods as needed documented as of this encounter Visit Diagnoses Not on filedocumented in this encounter Care Teams Senior Staff Psychologist Relationship Specialty Start Date End Date Eleuterio Willard MD [address] [facility] [address] [place] [address] PCP - General Family Medicine 04/03/21 Audie Dominguez DPT [address] [facility] [address] [place] [address] Physical Therapist Physical Therapy 09/08/19 documented as of this encounter
--- OUTSIDE RECORDS SUMMARY | 2025-02-09 05:18 | XMS_ITS | Clinical Summary ---
Author Organization [facility] [employer] Address [address] [place] [address] Care Team Providers Care Coronary Clinical Specialist Name Role Phone Unavailable Primary Care Provider Unavailabl e Source Comments [facility] [employer],non-owned Affiliates and Associated Physician Practices is amultiple site organization consisting of ambulatory clinics and hospital sitesin [place], [place], [place] and [place]. This disclosure is being madepursuant to the Care Everywhere program and may not contain all information available regarding this patient. Last updated 18.[facility] [employer] Allergies No known active allergies Medications * Be aware that medications may not be up to date on this document. Alwaysverify current medications with the patient. Vitamins (DIS) TABS Take 1 Tab by mouth once daily. Active ibuprofen (MOTRIN) 600 MG tablet Take 1 Tab by mouth every 6 hours as needed for Pain. 60 Tab 0 08/16/2012 Active docusate sodium (COLACE) 100 MG capsule Take 1 Cap by mouth once daily. 60 Cap 1 08/16/2012 Active ferrous sulfate 325 (65 FE) MG tablet Take 1 Tab by mouth 2 times daily with morning and evening meal. 60 Tab 2 08/16/2012 Active Active Problems Problem Noted Date Diagnosed Date Supervision of other high-risk 012 Overview (06/09/2015): Abby with Dr. Cadena Dating by: 10wk documented US, unsure LMP Prenatals: B+ Ab:neg Hgb Elec: Pap: GC/CT: H/H/Plt: 12.6/37.8/306 on 06/09/12 QS: GCT: GBS: History of classical section 07/27/2012 Overview (07/27/2012): 12/2011 classical documented for breech, and incompetent cervix History of delivery, currently 07/27/2012 Overview (07/27/2012): G2 at 34 weeks, PPROM 32 weeks G3 at 25 weeks, breech and incompetent cervix Obesity 07/27/2012 Short interval between pregnancies complicating 07/27/2012 Vaginal bleeding before 22 weeks gestation 07/27 Overview (07/27/2012): At 10 weeks, and 11 weeks during June Immunizations Immunization Administration Dates Next Due HEP A VACCINE, ADULT 06/10/2009 HEP B VACCINE ADOL/ADULT 2 DOSE 06/10/2009 INFLUENZA VACCINE 08/16/2012 TDAP (7yrs+) 08/16/2012 TETANUS 06/10/2009 Family History Medical History Relation Name Comments Diabetes Father Hypertension Maternal Grandmother Relation Name Status Comments Father Maternal Grandmother Social History Tobacco Use Types Packs/Day Years Used Date Smoking Tobacco: Never Alcohol Use Standard Drinks/Week Comments No 0 (1 standard drink = 0.6 oz pur e alcohol) Comments Unknown Sex and Gender Information Value Date Recorded Sex Assigned at Not on file 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 Gender Identity Not on file Sexual Orientation Not on file Last Filed Vital Signs Vital Sign Reading Time Taken Comments Blood Pressure 132/82 08/16/2012 3:16 PM DOVETAILER Pulse 90 08/16/2012 3:16 PM DOVETAILER Temperature 36.8 C (98.3 F) 08/16/2012 3:16 PM DOVETAILER Respiratory Rate 18 08/16/2012 3:16 PM DOVETAILER Oxygen Saturation 100% 08/16/2012 8:00 AM DOVETAILER Inhaled Oxygen Concentration - - Weight 128.8 kg (284 lb) 08/15/2012 4:37 PM DOVETAILER Height 167.6 cm (5' 6) 08/15/2012 4:37 PM DOVETAILER Body Mass Index 45.84 08/15/2012 4:37 PM DOVETAILER Plan of Treatment Health Maintenance Due Date Last Done Comments HIV SCREENING 2000 HEPATITIS C SCREENING 09/30/2003 HEPATITIS B VACCINE (2 of 3 - 19+ 3-dose series) 07/08/2009 06/10/2009 HPV VACCINE (1 - 3-dose SCDM series) 2012 DTAP/TDAP/TD VACCINES (3 - T d or Tdap) 08/16/2022 08/16/2012, 06/10/2009 COVID-19 VACCINE (1 - 2023-2 5 season) 2024 DEPRESSION SCREENING 08/02/2024 INFLUENZA VACCINE (#1) 2025 08/16/2012 ZOSTER VACCINE (1 of 2) 10/05/2035 HIB VACCINE Aged Out No longer eligi ble based on patient's age to complete this topic MENINGOCOCCAL (Group B) VACCINE SHARED DECISION-MAKING Aged Out No longer eligible based on patient's age to complete this topic MENINGOCOCCAL GROUPS A/C/Y/W VACCINE Aged Out No longer eligible b ased on patient's age to complete this topic PNEUMOCOCCAL VACCINE Aged Out No long er eligible based on patient's age to complete this topic Insurance MEDICAID - [place] Advance Directives * FULL RESUSCITATION (Latest Code Status on File) Date Activated Date Inactivated Comments 08/15/2012 6:40 PM 08/16/2012 6:30 PM
--- OUTSIDE RECORDS SUMMARY | 2025-02-09 05:18 | XMS_ITS | Clinical Summary ---
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
--- OUTSIDE RECORDS SUMMARY | 2025-02-09 05:18 | XMS_ITS | Data Portability ---
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 Copy of result given to patient to submit to her employer. Pt does not have any questions at this time [email or web address] Not available 07/21/2024 12:53:32 Plan of Treatment Reminders Order Date Submit Date Provider Last Modified By Organization Details Last Modified Time Details Appointments None recorded. Lab PPD (purified protein derivative ), skin test 2023 [place], [address] [place], [address], 12:50:45 lipid panel, blood 2023 024 [facility]inks [facility] [place], [address] [place], [address], 11:45:29 glucose, QN, fingerstic k, blood (glucomete r) 2023 024 [facility] [place] [address] [place], [address], 11:45:29 Referral None recorded. Procedures None recorded. Surgeries None recorded. Imaging None recorded. Medication Orders mupirocin 2 % topical ointment 2023 024 [facility], [address] [facility] [place], [address], [id number], 11:04:37 Patient Targets Encounter Date Encounter Id Patient Goals Patient Target Last Modified By Organization Details Last Modified Time 04/27/2024 [id number] Biomedical exam and flu shot gsinks Not available 04/27/2024 13:18:13 Patient Instructions Encounter Date Encounter Id Patient Instructions Last Modified By Organization Details Last Modified Time 04/27/2024 [id number] Continue diet an d exercise gsinks Not available 04/27/2024 13:14:43 Lab results, Diet, exercise, clinic services gsinks Not available 04/27/2024 13:16:36 Reason for Referral None Reported. Results Created Date Observation Date Name Description Value Unit Range Abnormal Flag Note LastModifiedBy Organization Detail LastModifiedTime 04/27/2004/27/2024 lipid panel , blood total cholesterol 166 mg/dL <200 Not Available [address], [address], 04/27/2024 11:35:09 04/27/20 24 04/27/2024 lipid panel , blood LDL 81 mg/dL <100 Not Available [address], [address], 04/27/2024 11:35:09 04/27/2004/27/2024 lipid panel , blood HDL 68 mg/dL >50 Not Available [address], [address], 04/27/2024 11:35:09 04/27/20 24 04/27/2024 lipid panel , blood triglyceride s 87 mg/dL <150 Not Available [facility] - [address], [address], 04/27/2024 11:35:09 04/27/20 24 04/27/2024 lipid panel , blood TC/HDL ratio 2.4 <4.5 Not Available [address], [address], 04/27/2024 11:35:09 04/27/20 24 04/27/2024 gluco se, QN, finge rstic k, blood (gluc omete r) blood glucose (fasting) 102 md/dL 65-99 Not Available [address], [address], 04/27/2024 11:35:09 04/27/20 24 04/27/2024 gluco se, QN, finge rstic k, blood (gluc omete r) blood glucose (non-fasting ) mg/dL <140 Not Available [address], [address], 04/27/2024 11:35:09 07/21/20 24 07/21/2024 PPD (brett fied prote in deriv ative ), skin test Induration 0 mm Not Available [address], [address], 07/19/2024 11:18:43 07/21/20 24 07/21/2024 PPD (brett fied prote in deriv ative ), skin test TB Result negati ve Not Available [address], [address], 07/19/2024 11:18:43 Result Notes None recorded. Problems Name Problem SNOMED Code Status Onset Date Resolution Date Notes Provider Name and Address Organization Details Recorded Time History of anemia 435741540 Completed 202308/19/2023 Naila malcolm, [place] - [facility] 01/18/202 4 12:36:50 History of anemia 473939873 Active 2018 History of anemia; PROBABIL ITY: 0 Confir mation: Confirme d Annota tedDispl ay: History of anemia C lassific ation: Medical Not Available [facility] 4 05:25:53 Absences [id number] Completed 201810/27/2023 No Chronic Problems ; PROBABIL ITY: 0 Annota tedDispl ay: No Chronic Problems Not Available [facility] 4 05:25:53 Obesity 833825734 Active 2018 Obesity; PROBABIL ITY: 0 Confir mation: Probable Annotat edDispla y: Obesity Classifi cation: Medical Lifecycl eDateTim e: 14:27:31 +00:00 Not Available [facility] 4 05:25:53 Closed fracture of carpal bone 8390933 Completed 201410/27/2023 Broken Wrist; PROBABIL ITY: 0 Confir mation: Confirme d Annota tedDispl ay: Broken Wrist Cl assifica tion: Medical Not Available [facility] 4 05:25:53 Problem Notes None recorded. Procedures Surgical History Date Name Laterality Status Provider Name and Address Organization Details Recorded Time wrist repair completed Marcelle Snow Removing Supervisor [place] [facility] 07/19/2024 11:01:31 Imaging Results None recorded. Procedure Notes None recorded. Medical Equipment None Reported. Allergies No known drug allergies Medications Name Sig Start Date Stop Date Status Note LastModified by Organization Details LastModified Time cyclobenz aprine 10 mg tablet 1 tab(s) Oral hs,x15 days,PRN :for spasm 10/01 completed Duration : 15 Durat ionUnit: days PRN Instruct ions: for spasm St opType: Physicia n Stop Jorge gIdentif icationN umber: [id number] S cheduled PRN: Yes Tota lRefills : 0 Consta ntIndica tor: No CSASc hedule: 0 active _status_ dt_tm: 9 8:48:14 AM Not Available Not Available Not Available azithromy chloe 250 mg tablet Oral; as directed on package labeling 07/17 completed StopType : Physicia n Stop Jorge Josefina conroytionN umber: [id number] T otalRefi lls: 0 Consta ntIndica tor: Yes CSAS chedule: 0 active _status_ dt_tm: 9 11:10:12 AM Not Available Not Available Not Available ibuprofen 200 mg capsule 12/13 completed StopType : Physicia n Stop Jorge Josefina icationN umber: [id number] T otalRefi lls: 0 Consta ntIndica tor: Yes CSAS chedule: 0 active _status_ dt_tm: 08/07/2019 8:23:41 AM Not Available Not Available Not Available metronida zole 0.75 % (37.5 mg/5 gram) vaginal gel INSERT ONE APPLICAT ORFUL VAGINALL Y EVERY NIGHT FOR 5 NIGHTS, THEN CONTINUE 1 DOSE WEEKLY 08/19 completed Not Available Not Available Not Available phentermi ne 15 mg capsule 07/23 completed StopType : Physicia n Stop Jorge Josefina icationN umber: [id number] S cheduled PRN: No Total Refills: 0 Consta ntIndica tor: Yes CSAS chedule: 4 active _status_ dt_tm: 2 12:32:04 PM Not Available Not Available Not Available Zyrtec 10 mg tablet 1 tab(s) Oral daily 06/07 completed StopType : Physicia n Stop Jorge Josefina conroytionN umber: [id number] S cheduled PRN: No Total Refills: 0 Consta ntIndica tor: Yes CSAS chedule: 0 active _status_ dt_tm: 0 12:01:42 PM Not Available Not Available Not Available phentermi ne 37.5 mg tablet TAKE 1 TABLET BY MOUTH DAILY BEFORE BREAKFAS T 04/27 completed Not Available Not Available Not Available gabapenti n 300 mg capsule 04/24 completed Disconti nueDate: 2 10:14:00 AM Disco ntinueTy pe: User Manual DC StopT ype: Physicia n Stop Jorge Hudsontif icationN umber: [id number] T otalRefi lls: 0 Consta ntIndica tor: Yes CSAS chedule: 0 active _status_ dt_tm: 0 10:33:06 AM Not Available Not Available Not Available mupirocin 2 % topical ointment APPLY SMALL AMOUNT TOPICALL Y TO THE AFFECTED AREA THREE TIMES DAILY 07/19 completed Not Available Not Available Not Available ergocalci ferol (vitamin D2) 1,250 mcg (50,000 unit) capsule TAKE 1 CAPSULE BY MOUTH ONE TIME PER WEEK 2023 active Not Available Not Available Not Avai lable Cheratuss in AC 10 mg-100 mg/5 mL oral liquid 07/20 completed Duration : 10 Durat ionUnit: days Sto pType: Physicia n Stop Jorge gIdentif icationN umber: [id number] T otalRefi lls: 0 Consta ntIndica tor: Yes acti ve_statu s_dt_tm: 9 11:05:38 AM Not Available Not Available Not Available Daily Multi-Vit chinchilla tablet 2021 active StopType : Soft Stop Jorge gIdentif icationN umber: [id number] T otalRefi lls: 0 Consta ntIndica tor: Yes CSAS chedule: 0 active _status_ dt_tm: 2 10:15:18 AM Not Available Not Available Not Available Vitamin C active Not Available Not Merry ilable Not Available calcium active Not Available Not Avail able Not Available phentermi ne 04/27 completed Not Available Not Available Not Available biotin 01/06 completed StopType : Physicia n Stop Jorge gIdentif icationN umber: [id number] T otalRefi lls: 0 Consta ntIndica tor: Yes CSAS chedule: 0 active _status_ dt_tm: 5 8:00:56 AM Not Available Not Available Not Available tramadol 12/13 completed StopType : Physicia n Stop Jorge gIdentif icationN umber: [id number] T otalRefi lls: 0 Consta ntIndica tor: Yes CSAS chedule: 4 active _status_ dt_tm: 08/07/2019 11:58:21 AM Not Available Not Available Not Available naproxen 12/13 completed StopType : Physicia n Stop Jorge gIdentif icationN umber: [id number] T otalRefi lls: 0 Consta ntIndica tor: Yes CSAS chedule: 0 active _status_ dt_tm: 08/07/2019 8:23:41 AM Not Available Not Available Not Available Iron (ferrous sulfate) 07/19 completed Not Available Not Available Not Available Vitamin D3 07/19 completed Not Available Not Available Not Available Iron Chews 07/19 completed StopType : Soft Stop Jorge gIdentif icationN umber: [id number] T otalRefi lls: 0 Consta ntIndica tor: Yes CSAS chedule: 0 active _status_ dt_tm: 2 12:32:04 PM Not Available Not Available Not Available Iron 100 Plus 12/13 completed StopType : Physicia n Stop Jorge gIdentif icationN umber: [id number] T otalRefi lls: 0 Consta ntIndica tor: Yes CSAS chedule: 0 active _status_ dt_tm: 9 8:27:07 AM Not Available Not Available Not Available Flonase Allergy Relief 50 mcg/actua tion nasal spray,johan pension 2 spray(s) Nasal daily,x1 4 days 12/27 completed Duration : 14 Durat ionUnit: days Sto pType: Physicia n Stop Jorge gIdentif icationN umber: [id number] S cheduled PRN: No Total Refills: 0 Consta ntIndica tor: Yes acti ve_statu s_dt_tm: 0 12:02:43 PM Not Available Not Available Not Available Fluzone Quad [id number] (PF) 60 mcg (15 mcg x 4)/0.5 mL IM suspensio n 05/22 completed StopType : Physicia n Stop Jorge gIdentif icationN umber: [id number] N extDoseD ate: 05/22/20 19 4:40:00 PM Const antIndic ator: No activ e_status _dt_tm: 05/22/20 4:41:17 PM Not Available Not Available Not Available Fluzone Quad [facility] 2020(PF) 60 mcg (15 mcg x 4)/0.5 mL IM syr 06/07 completed StopType : Physicia n Stop Jorge Hudsontif marycarmentionN umber: [id number] N extDoseD ate: 0 3:25:00 PM Const antIndic ator: No activ e_status _dt_tm: 0 3:25:44 PM Not Available Not Available Not Available Fluzone Quad [id number] (PF) 04/24 completed StopType : Physicia n Stop Jorge Josefina murrellN umber: [id number] S cheduled PRN: No NextD oseDate: 2 10:20:00 AM Const antIndic ator: No CSASc hedule: 0 active _status_ dt_tm: 2 10:21:16 AM Not Available Not Available Not Available Zepbound 5 mg/0.5 mL subcutane ous pen injector INJECT 0.5 ML (5 MG TOTAL) UNDER THE SKIN EVERY 7 DAYS active Not Available Not Available No t Available Zepbound 2.5 mg/0.5 mL subcutane ous pen injector INJECT 0.5 ML (2.5 MG TOTAL) UNDER THE SKIN EVERY 7 DAYS 07/19 completed Not Available Not Available Not Available Zepbound 7.5 mg/0.5 mL subcutane ous pen injector active Not Available Not Available Not Available Vitals Date Recorded Body height Body mass index (BMI) Body weight Body temperature Oxygen saturation Oxygen saturation in Arterial blood by Pulse oximetry Respiratory rate Heart rate Systolic And Diastolic Provider Name and Address Organization Details Last Updated DateTime 4 167.64 cm 42.1 kg/m2 437926. 89 g 97.7 [degF] 98 % 98 % 16 /min 75 /min 102/76 mm[Hg] Naila [place] [facility] 4 12:32:36 Date Recorded Body height Body mass index (BMI) Body weight Body temperature Oxygen saturation Oxygen saturation in Arterial blood by Pulse oximetry Respiratory rate Heart rate Systolic And Diastolic Provider Name and Address Organization Details Last Updated DateTime 4 167.64 cm 43.4 kg/m2 285380. 07 g 97.2 [degF] 98 % 98 % 16 /min 71 /min 132/80 mm[Hg] Naila Fraz[place] [facility] 4 11:40:23 Date Recorded Body height Body mass index (BMI) Body weight Body temperature Respiratory rate Heart rate Systolic And Diastolic Provider Name and Address Organization Details Last Updated DateTime 4 167.64 cm 43.3 kg/m2 308170. 76 g 98.1 [degF] 18 /min 68 /min 116/72 mm[Hg] Marcelle Snow Removing Supervisor [place] [facility] 4 11:06:46 Social History None recorded. Functional Status Question Answer Note LastModified by Organization D etails LastModified Time Do you or have you ever used any other forms of tobacco or nicotine? No [email or web address] Information not available 08/19/2023 What is your level of alcohol consumption? None [email or web address] Information not available 08/19/2023 Mental Status None recorded. Family History Relationship Description Onset Age of this Age Resolved Age Notes LastModified by Organization Details LastModified Time Father No current problems or disability [email or web address] Not available 12:37:00 Mother No current problems or disability [email or web address] Not available 12:37:00 Notes:Diabetes mellitus, Hig h blood pressure Medical History No medical history recorded. Gynecological HistoryNo gynecological history recorded. Obstetrics History GPAL:G 0 P 0 0 0 0 Immunizations Vaccine Type Date Status Note Provider Nam e and Address Organization Details Recorded Time influenza, unspecified formulation 08/16/2012 samson malcolm[place] [facility] 08/19/2023 12:32:48 influenza, unspecified formulation 06/02/2019 completed Naila [place]colm, [place] [facility] 08/19/2023 12:32:48 Tdap 08/16/2012 completed Naila malcolm, [place] [facility] 08/19/2023 12:32:48 Hep B, adult 06/10/2009 completed Naila Frazier null, [place] - [facility] 08/19/2023 12:32:48 Hep A, adult 06/10/2009 completed Naila Frazier null, [place] [facility] 08/19/2023 12:32:48 tetanus toxoid, adsorbed 06/10/2009 completed Naila Frazier null, [place] [facility] 08/19/2023 12:32:48 Influenza, split virus, trivalent, PF 04/27/2024 completed HECTOR COLLINS NP [address], [place], [address], [place] [facility] 04/27/2024 13:10:54 Tdap 07/19/2024 completed Teodora Ortiz NP [address], [place], [address], [place] [facility] 07/19/2024 12:24:51 Past Encounters Encounter ID Performer Location Encounter Start Date Encounter Closed Date Diagnosis/Indication Diagnosis SNOMED-CT Code Diagnosis ICD10 Code Diagnosis Note [id number] Brunilda Gutiérrez NP [facility] [address] [facility] [place] [address] 08/19/2023 12:23:29 08/19/2023 14:37:34 Localized eruption of skin 582432668 R21 Etiology uncertain, for the last 1 1/2 weeks has been having episodic outbreaks with 2-3 discrete lesions at a time with short duration of about 3-4 days, only have appeared on her arms and face, they can be itchy and have a clear/margarette ty like discharge. Try to avoid scratching when feasible, by starting the generic Zyrtec and applying moisturize r to damp skin may help control the itching.Ap ply Mupirocin to affected areas as directedIf were to develop more lesions with longer duration or rash were to become localized, encouraged to follow up for re-evaluat Trey chew verbalized understand ing and agreed with the above Dry cough 40280533 R05.9 Suggested Delsym OTC as directed per package insert for dry coughCough drops PRN/1-2 tsp Honey in tea 2-3 times dailyEncou raged hydrating fluids/res tFollow up if symptoms persist, worsens, develops SOB, wheezing, fever, chills or has other concerns encouraged to follow up in clinic or if after hours and symptoms are warranted go to the UCC or EDPatient verbalized understand ing and agreed with the above Itching of skin 17576901 0 L29.9 Suggested generic Zyrtec 10 mg one po daily for itchingAft er showering, suggested while skin is still damp to apply a good moisturize r such as CeraveEnco uraged to dress warm and avoid any unnecessar y skin to be exposedHum idifier at bedside can be of help with adding moisture to the dry heatPatien t verbalized understand ing on the above mentioned [id number] Danny Dumont DO [facility] - [place] [address] [place] [address] 04/27/2024 11:28:37 04/27/2024 13:31:29 Adult health examination 108395719 Z00.00 Good result's, WNL Administra tion of influenza vaccine 08730310 Z23 [id number] Teodora Ortiz NP [facility] - [place] [address] [place] [address] 07/19/2024 10:57:18 07/19/2024 12:43:33 Tuberculosis screening 740687843 Z11.7 PPD needed for employment , will return wednesday for reading Active or passive immunization 642723923 Z23 Pt due for TDAP last given in 2012 Adult heal th examination 860022792 Z00.00 Exam normal at this time, please see scanned form for clearance. Pt needs to find immunizati on record to verify second Hep A received. Follow up if any questions. Tdap administer ed and tolerated, will return for PPD reading. Patient is agreeable with this plan, verbalized understand ing of this plan. No further questions at time of discharge. Return to clinic PRN for these symptoms or per [facility] regulation s patient to follow up with a physician in 2 weeks for change in status or any new diagnosis. [id number] Danny [facility] [place] [address] [place] [address] 07/21/2024 12:52:31 07/21/2024 16:12:51 Health Concerns Section Related Observation LastModified by Organization Detai ls LastModified Time None Recorded Concern Status LastModified by Organization Details LastModified Time None Recorded Advance Directives Directive None Recorded Payers Insurance Date Sequence Insurance Name Policy Number Policy Pichardo Covered Member ID Pichardo Member ID Guarantor Name 09/08/2024 [facility] NON [employer] PPO (MOVED-BILLE D) UNKNOWN Liliam Colmenares UNKNOWN Liliam Colmenares 09/08/2024 [employer] [place] [employer] PPO (MOVED-[place]IL[place] D) UNKNOWN Liliam Colmenares UNKNOWN Liliam Colmenares 07/19/2024 [employer] NON [employer] PPO (MOVED-BILLE D) Liliam Colmenares [id number] Liliam Colmenraes 07/19/2024 [employer] NON [employer] HDHP - (MOVED-BILLE D) UNKNOWN Liliam Colmenares UNKNOWN Liliam Colmenares 07/19/2024 [employer] [employer] HDHP - (MOVED-BILLE D) UNKNOWN Liliam Colmenares UNKNOWN Liliam Colmenares 08/01/2024 [employer] [employer] HDHP - (MOVED-BILLE D) UNKNOWN Liliam Colmenares UNKNOWN Liliam Colmenares 08/01/2024 [employer] NON [employer] HDHP - (MOVED-BILLE D) UNKNOWN Liliam Colmenares UNKNOWN Liliam Colmenares Notes Date Note Type Note Provider Name and Address Organization Details Recorded Time 08/19/2023 text/html Liliam a 37 yr old female presents today with a history of 1 1/2 weeks breaking out with an episodic rash (few discrete firm lesions) which appear only on her face and arms Has been cleansing the areas well. with rubbing alcohol and then applying A &D ointment, then completely resolve in about 4 days and then will have a few more break out , but only 3-4 lesions at a time. Admits they itch at times and has found if she does not scratch them they will even go away sooner, such as an outbreak she had yesterday on her cheeks, they resolved within about 4 hours. Denies rash to have occurred on other parts of her body.Skin is itchy. Admits there have been some changes: got a new mattress, bedspread, sheets and pillows in July, started taking oral OTC Biotin and Apple Cider Vinegar tablets daily, changed her diet; eating more healthy by consuming more vegetables, avoiding snacking, and quit drinking alcohol. Denies change in soaps, detergents, or body lotions, no recent travel, does have a dog in the house, sleeps with her children and not her, no other family members have symptoms such as hers. Admits for the last 3 days she has developed an episodic dry cough,which has been stable, seems to be worse at HS, has not taken anything for it at this time, denies fever, chills, JOHNS, nasal/sinus drainage or congestion, eye symptoms, sore throat, SOB, wheezing, N/V/D or other GI symptoms. Has one child that has been coughing for about one week in the house, not worsened, just lingering. Brunilda Gutiérrez NP [address], [place], [address], [place] [facility] 08/19/2023 13:46:36 04/27/2024 text/html Is here foe biometric screen. Is exercising daily attempting to reduce weight with success. Has no complaints. Request yearly flu jab. 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 Is up to date on hepatitis B and needs to check immunization record for Hep A status. Is due to tdap today. Feels well, no past medical history of chronic conditions reported. Tedoora Ortiz NP [address], [place], [address], [place] [facility] 07/19/2024 12:42:46 OBGyn Episode No OBEpisode recorded.
[2025-02-09 05:32] LABS: Hematocrit 39.4 % (37.0-47.0); Hemoglobin 12.7 g/dL (12.0-15.0); Immature Granulocyte Percent A 0.2 % (0-0.5); Lymphocytes Absolute Auto 1.99 K/mm3 (0.9-3.2); Mean Corpuscular HGB Conc 32.2 g/dl (32-36); Mean Corpuscular Hemoglobin 29.1 pg (26-34); Mean Corpuscular Volume 90.4 fl (80-100); Nucleated Red Blood Cells Absolute Auto 0.000 K/mm3 (0.0-0.012); Nucleated Red Blood Cells Perc 0.0 % (0.0-0.2); Platelet Count Result 356 k/mm3 (150-375); Red Blood Count 4.36 M/mm3 (4.2-5.4); White Blood Count 5.1 K/mm3 (4.5-10.0)
[2025-02-09 05:52] LABS: Alanine Aminotransferase 45 U/L (6-35); Albumin Level 4.2 g/dL (3.5-5.1); Alkaline Phosphatase 39 U/L (38-126); Anion Gap 6 mmol/L (4-12); Aspartate Amino Transferase 43 U/L (14-36); Bilirubin,Total 0.4 mg/dL (0.2-1.3); Blood Urea Nitrogen 16 mg/dL (7-17); Calcium 9.7 mg/dL (8.4-10.2); Carbon Dioxide 21 mmol/L (22-30); Chloride 107 mmol/L (98-107); Estimated CRCL calculation 82 ml/min; Estimated Glomerular Filt Rate 59; Glucose 97 mg/dL (65-110); Lipase 92 U/L (23-300); Potassium 4.6 mmol/L (3.4-5.0); Sodium 134 mmol/L (137-145); Total Protein 8.1 g/dL (6.3-8.2)
[2025-02-09 05:53] LABS: Add Urine Microscopic? YES; Appearance Urine Cloudy (Clear); Glucose Urine UA Negative (Negative); Leukocyte Esterase Ur Negative LEU/UL (Negative); Nitrate Urine Negative (Negative); Non Pathogenic Casts 0-2; Specific Grav Ur 1.007 (1.001-1.035)
[2025-02-09] MEDS: ONDANSETRON INJ 4 MG/2 ML VIAL IV PUSH (06:32)
[2025-02-09] MEDS: SODIUM CHLORIDE 0.9% IV 1,000 ML 999 ML IV CONT ×2 (06:32→06:46)
[2025-02-09 06:33] LABS: BEDSIDEPREGUCG Negative (Negative)
--- NOTE | 2025-02-09 06:38 | ED_ITS ---
HPI - General Adult General Chief complaint: Nausea/Vomiting/Diarrhea Stated complaint: diarrhea Time Seen by Provider: 02/09/25 06:17 History of Present Illness HPI narrative: Patient is a 39-year-old female who presents emergency department this evening complaining of nausea, vomiting and diarrhea. States the symptoms started approximately 12 hours ago. She is having diarrhea every hour. States that to keep up her hydration she has been doing some liquid IV. States that is mainly diarrhea more so than the nausea but she is belching a lot. States that she has been having intermittent abdominal cramping but right now currently denying any abdominal pain. Denies any sick contacts at home, any recent illness, fevers or chills. No additional symptoms or concerns at this time. Related Data Home Medications ?Medication ?Instructions ?Recorded ?Confirmed ?Last Taken ?Type cholecalciferol (vitamin D3) 125 125 mcg PO DAILY 09/06/19 09/06/19 Unknown History mcg (5,000 unit) capsule cyanocobalamin (vitamin B-12) 50 50 mcg PO DAILY 09/06/19 09/06/19 Unknown History mcg tablet (Vitamin B-12) gabapentin 300 mg capsule 300 mg PO BID 09/06/19 09/06/19 Unknown History ibuprofen 200 mg tablet (Advil) 200 mg PO Q6H PRN 09/06/19 09/06/19 Unknown History lactobacillus combination no.8 3 3,000 mmu cells PO DAILY 09/06/19 09/06/19 Unknown History billion cell capsule (Adult Probiotic) magnesium citrate 100 mg tablet 100 mg PO BID 09/06/19 09/06/19 Unknown History Allergies Allergy/AdvReac Type Severity Reaction Status Date / Time nkda Allergy Mild Uncoded 10/29/22 14:19 Review of Systems 2 Review of Systems: All systems are reviewed and are negative unless stated otherwise in the HPI. [facility] Past Medical History Medical History Injection (erythema) Cortisone injection 08/29/2019 Lumbar radiculopathy Surgical History Surgical History H/O tubal ligation 2013 Family History Family History Grandparent Diabetes mellitus Hypertension Father Diabetes mellitus Hypertension Patient's father is in good health Social History Social History Smoking status: Never smoker Alcohol intake: current Exam 2 Narrative: General: Alert, awake, afebrile, in no acute distress. HEENT: PERRL, no rhinorrhea, no post nasal drip, oropharynx clear. Neck: Trachea midline, no JVD, no lymphadenopathy. Cardiovascular: Regular rate and rhythm, no murmurs, rubs or gallops, no peripheral edema. Respiratory: Clear to auscultation bilaterally, no tachypnea, no wheezing, no rhonchi, no rubs, no respiratory distress. Abdomen: Soft, nontender, nondistended, no rebound, no guarding, no peritoneal signs. Musculoskeletal: No joint swelling or deformity, normal muscle tone. Skin: No rashes or petechia, no signs of infection. Psychiatric: Alert and oriented, normal behavior and judgment for situation. Neurological: Alert and oriented to person, place, and time. Follows all commands. No focal deficits, speech is clear and fluent. Course Vital Signs Vital signs: Vital Signs Temperature 97.9 F 02/09/25 05:20 Pulse Rate 83 02/09/25 05:20 Respiratory Rate 19 02/09/25 05:20 Blood Pressure 137/84 02/09/25 05:20 Pulse Oximetry 100 02/09/25 05:20 Oxygen Delivery Room Air 02/09/25 05:20 Temperature 97.9 F 02/09/25 05:20 Pulse Rate 83 02/09/25 05:20 Respiratory Rate 19 02/09/25 05:20 Blood Pressure 137/84 02/09/25 05:20 Pulse Oximetry 100 02/09/25 05:20 Oxygen Delivery Room Air 02/09/25 05:20 Medical Decision Making MDM Narrative Medical decision making narrative: The patient was evaluated by myself in the emergency department. History is obtained from patient who is an independent historian and physical exam was performed. External medical records were reviewed at this time. IV was established and pertinent tests were ordered. Patient was administered 2 L IV fluid bolus of normal saline, 4 mg IV Zofran and 20 mg IV Versed. Laboratory results obtained revealing no acute process. Shared medical decision-making with patient regarding obtaining CT abdomen was was discussed at this time, patient agrees that no CT is indicated at this time. Differential diagnosis considerations include dehydration, electrolyte derangements, acute viral syndrome, gastroenteritis/gastritis. Comorbidities impacting this visit include none. I have evaluated and discussed social determinants of health with the patient that could potentially impact subsequent diagnosis and treatment plans. On repeat assessment of the patient, reevaluation revealed that the patient is doing well and is in no acute distress. Patient symptoms have improved since she arrived to our emergency department. Repeat vital signs were all reviewed and noted to be stable. Differential diagnosis and treatment plan were discussed with the patient at bedside. Patient agrees with discussion and after shared medical decision making agrees with discharge. All questions were answered to the patient's satisfaction. Patient will follow up with her PCP in 3-5 days. Script for Zofran was sent to patient's pharmacy to use as needed for nausea/vomiting. Patient was provided with strict return precautions and instructed to return to the emergency department if any new or worsening symptoms develop. The patient was discharged in stable condition. Vital Signs Vital Signs: Vital Signs Temperature 97.9 F 02/09/25 05:20 Pulse Rate 83 02/09/25 05:20 Respiratory Rate 19 02/09/25 05:20 Blood Pressure 137/84 02/09/25 05:20 Pulse Oximetry 100 02/09/25 05:20 Oxygen Delivery Room Air 02/09/25 05:20 Temperature 97.9 F 02/09/25 05:20 Pulse Rate 83 02/09/25 05:20 Respiratory Rate 19 02/09/25 05:20 Blood Pressure 137/84 02/09/25 05:20 Pulse Oximetry 100 02/09/25 05:20 Oxygen Delivery Room Air 02/09/25 05:20 Lab Data 02/09/25 05:26 02/09/25 05:26 Labs: Lab Results 02/09/25 02/09/25 02/09/25 Range/Units 05:26 05:42 06:31 WBC 5.1 (4.5-10.0) K/mm3 RBC 4.36 (4.2-5.4) M/mm3 Hgb 12.7 (12.0-15.0) g/dL Hct 39.4 (37.0-47.0) % MCV 90.4 (80-100) fl MCH 29.1 (26-34) pg MCHC 32.2 (32-36) g/dl RDW 12.9 (11.5-14.5) % Plt Count 356 (150-375) k/mm3 MPV 9.5 (7.4-10.4) fl Immature Gran % (Auto) 0.2 (0-0.5) % Neut % (Auto) 51.4 (45.5-73.1) % Lymph % (Auto) 39.3 (18.3-44.2) % [place] % (Auto) 7.3 (2.6-8.5) % Eos % (Auto) 1.6 (0-4.4) % Baso % (Auto) 0.2 (0.2-1.2) % Lymph # (Auto) 1.99 (0.9-3.2) K/mm3 [place] # (Auto) 0.4 (0.1-0.6) K/mm3 Eos # (Auto) 0.1 (0-0.3) K/mm3 Baso # (Auto) 0.0 (0.0-0.1) K/mm3 Abs Immat Gran (auto) 0.01 (0.00-0.031) K/mm3 Absolute Neuts (auto) 2.6 (1.3-6.7) K/mm3 Absolute Nucleated RBC 0.000 (0.0-0.012) K/mm3 Nucleated RBC % 0.0 (0.0-0.2) % Sodium 134 L (137-145) mmol/L Potassium 4.6 (3.4-5.0) mmol/L Chloride 107 (98-107) mmol/L Carbon Dioxide 21 L (22-30) mmol/L Anion Gap 6 (4-12) mmol/L BUN 16 (7-17) mg/dL Creatinine 1.04 H (0.7-1.0) mg/dL Estim Creat Clear Calc 82 ml/min Estimated GFR 59 (59 - ) Glucose 97 (65-110) mg/dL Calcium 9.7 (8.4-10.2) mg/dL Total Bilirubin 0.4 (0.2-1.3) mg/dL AST 43 H (14-36) U/L ALT 45 H (6-35) U/L Alkaline Phosphatase 39 (38-126) U/L Total Protein 8.1 (6.3-8.2) g/dL Albumin 4.2 (3.5-5.1) g/dL Lipase 92 (23-300) U/L Urine Color Yellow (Yellow) Urine Appearance Cloudy H (Clear) Urine pH 5.5 (5.0-9.0) Ur Specific [place] 1.007 (1.001-1.035) Urine Protein Negative (Negative) mg/dL Urine Glucose (UA) Negative (Negative) mg/dL Urine Ketones Negative (Negative) mg/dL Ur Blood (Man) Negative (Negative) Urine Nitrate Negative (Negative) Urine Bilirubin Negative (Negative) Urine Urobilinogen 0.2 (<2.0) mg/dL Leukocyte Esterase Rfl Negative (Negative) DANNA/UL Urine RBC 0-2 (0-2) /hpf Urine WBC 0-5 (0-3) /hpf Ur Squamous Epith Cells None seen (Few) /hpf Urine Bacteria None seen /hpf Urine Casts 0-2 POC Urine HCG, Qual Negative (Negative) Discharge Plan Discharge Clinical Impression: Gastroenteritis Patient Disposition: Home Condition: Improved Instructions: Antibiotic Form, Gastroenteritis (ED) Additional Instructions: Please follow-up with your family doctor within the next 3-5 days. Return to emergency department if any new or worsening symptoms develop. Take the prescribed Zofran as needed for nausea/vomiting Patient Language: Romanian Prescriptions: New ondansetron 4 mg tablet,disintegrating 4 mg PO Q8H PRN (Reason: nausea and vomiting) Qty: 10 0RF No Action ibuprofen [Advil] 200 mg tablet 200 mg PO Q6H PRN gabapentin 300 mg capsule 300 mg PO BID cholecalciferol (vitamin D3) 125 mcg (5,000 unit) capsule 125 mcg PO DAILY magnesium citrate 100 mg tablet 100 mg PO BID Vitamin B-12 50 mcg tablet 50 mcg PO DAILY Adult Probiotic 3 billion cell capsule 3,000 mmu cells PO DAILY Rx Instructions: administer with a meal Follow-up/Referrals: Alonzo Gibbons DO [Primary Care Provider] - 3 Days Stand Alone Forms: Work/School Release IP Time of Disposition: 06:42
[2025-02-09] MEDS: FAMOTIDINE 20 MG/2 ML VIAL IV PUSH (06:46)
--- OUTSIDE RECORDS SUMMARY | 2025-02-09 06:53 | XMS_ITS | Referral Summary ---
Author Organization [facility] Address [address] [place] [address] Care Team Providers Care Senior Instructor Name Role Phone Audie Dominguez DPT Unavailable [phone] Eleuterio Willard MD Primary Care Provider [phone] Encounters Date Type Department Care Team Description 12/27/2024 2:15 PM CDT Office Visit [facility] Family Medicine at [address] [place] [phone] Eleuterio Willard MD Class 3 severe obesity due to excess calories without serious comorbidity with body mass index (BMI) of 40.0 to 44.9 in adult (HCC) (Primary Dx) 12/19/2024 Orders Only [facility] Obstetrical Gynecology [address] [place] [address] [place] [phone] Rima Diana MD 12/18/2024 Results Follow-Up [facility] Obstetrical Gynecology [address] [place] [address] [address] [place] [phone] Rima Diana MD Vaginitis panel Vaginal, Pap and High Risk HPV and Genotyping (Cytology Component) 12/18/2024 1:39 PM CDT - 12/18/2024 11:59 PM CDT Hospital Encounter [facility] Medical Office Building [address] [place] [address] Well woman exam with routine gynecological exam; Vaginal itching; Screening for STDs (sexually transmitted diseases) Discharge Disposition: Discharge to home or self care 12/18/2024 11:00 AM CDT Office Visit [facility] Obstetrical Gynecology [address] [place] [phone] Rima Diana MD Well woman exam with routine gynecological exam (Primary Dx); Vaginal itching; Screening for STDs (sexually transmitted diseases) 12/06/2024 Results Follow-Up [facility] Obstetrical Gynecology [address] [facility] [address] [place] [phone] Rima Diana MD Urine culture Urine, clean voided, N. gonorrhoeae/C. trachomatis Amplification Vaginal, Vaginitis panel Vaginal 12/05/2024 11:24 AM CDT - 12/05/2024 11:59 PM CDT Hospital Encounter [facility] Medical Office Building [address] [place] [phone] Vaginal itching Discharge Disposition: Discharge to home or self care 12/05/2024 10:00 AM CDT Clinical Support [facility] Obstetrical Gynecology [address] [place] [phone] Vaginal itching (Primary Dx) 11/23/2024 Telephone [facility] Family Medicine at [place] [address] [facility] [address] [place] [phone] Eleuterio Willard MD Prior Auth ([place] on [...] & Plan (01/01/2022 4:18 PM CDT): New [id number] urine test + for blood, likely menstrual, [...] on file 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 Gender Identity Female 08/12/2021 12:04 PM LEAD MANUFACTURING TECHNICIAN Sexual Orientation Straight 08/12/2021 12 :04 PM LEAD MANUFACTURING TECHNICIAN Last Filed Vital Signs Vital Sign Reading [...] Chronic Care Management No change(07/12 9:03 AM LEAD MANUFACTURING TECHNICIAN) No Pamella Finley RN Note: Problem: Chronic [...] HPV HR 16 Not Detected Not Detected [facility] Comment:Testing performed by : [facility], [address] [place]., [address] HPV HR 18 Not Detected Not Detected [facility] LORENZO Comment:Testing performed by : [facility], [address] [place]., [address] HPV HR Non 16/18 Not Detected Not [...] this test have been verified by the [facility] Molecular Infectious Disease laboratory. Correlate with separately reported cytology results, as applicable. Interpretive data last revised 23 Testing performed by: [facility], [address] [place]., [address] Endocervical 12/18/2024 11:3 5 AM CDT 12/19/2024 8:49 AM CDT Narrative [facility] LORENZO - 12/19/2024 7:06 PM CDT Clinical history and diagnosis->screening Testing type->Screening Last menstrual period (date if known)->12/01/24 Riam Diana MD LAB BODY FLUIDS AND STOOL S ORDERABLES Final Result [facility] [address] [facility] Department [place] [address] [facility] * Pap and High Risk HPV and Genotyping (Cytology Component) (12/18/2024 11:35 AM CDT) Thin prep (Pap test) 12/18/2024 11:35 AM CDT 12/19/2024 8:06 AM CDT Narrative PATHOLOGY [facility] - 12/26/2024 9:09 AM CDT EPIC results best viewed via link to PDF [facility] [place] [address] Note to Patients: This report may contain [...] Gender: F : 1985 (Age: 39) Address: [address] [place] [phone] Hospital #: [id number] Service: DEFAULT Location: Patient Type: [facility] SPECIMEN Taken: 12/18/2024 Received: 12/19/2024 Accessioned: [...] this test have been verified by the [facility] Molecular Infectious Disease laboratory. Correlate with reported cytology results, as applicable. Interpretive data last revised 23 [facility]/12/26/2024 09:09 DEN [place](ASCP) Report Electronically Reviewed and [...] clinical information and biopsy results as indicated. [facility] Clinical Laboratory Improvement Amendments (CLIA) mandate that cytologic and histologic results be correlated for laboratory research quality assurance specialist & improvement standards. FOR ALL HIGH-GRADE [...] determined by the Surgical Pathology Department at [facility] as part of an ongoing quality assurance supervisor body program and in compliance with federally mandated [...] determined by the Surgical Pathology Department of [facility]. It has not been cleared or approved by the U. S. Food and Drug Administration. Rima Diana MD LAB CYTOLOGY ORDERABLES F inal Result PATHOLOGY [facility] * N. gonorrhoeae/C. trachomatis Amplification Endocervical (12/18/2024 11:35 AM CDT) C. trachomatis Not Detected [facility] Comment:Testing performed by : [facility], [address] [place] [address], [address] N. gonorrhoeae Not Detected [facility] LORENZO Comment: Interpretive Data This assay detects Chlamydia trachomatis and Neisseria gonorrhoeae by nucleic acid amplification testing (NAAT). This assay has been cleared by the [place] Food and Drug administration. The performance characteristics of this test have been verified by the [facility] Molecular Infectious Disease laboratory. The performance characteristics of this test have not been evaluated in individuals less than 14 years of age. Current Interpretive Data was last revised on 2023. Testing performed by: [facility], [address] [place] [address]., [address] Endocervical (None) 12/19/19 11:35 AM CDT 12/18/2024 9:17 PM CDT Rima Diana MD LAB MICROBIOLOGY - GENERA L ORDERABLES Final Result [facility] LORENZO [address] [facility] Department [place] [address] [facility] * (ABNORMAL) Vaginitis panel Vaginal (12/18/2024 11:35 AM CDT) Pathologist [facility] Bacterial Vaginosis Not Detected Not Detected Comment: A negative result does not preclude a possible infection. Results should be considered in conjunction with clinical presentation to determine the disease status. Testing performed by: [address] [address] Roseanne group Detected(A) Not Detected [facility] Comment: Roseanne species can be present as commensal organisms in women; results should be considered in conjunction with clinical presentation to determine the disease status. Testing performed by: [address] [address] Roseanne glabrata/ krusei Not Detected Not Detected GE[facility]GINA Comment:Testing performed by : [address] [address] Trichomonas DNA Not Detected Not Detected [facility] Comment:Testing performed by : [address] [address] Vaginal 12/18/2024 11:3 5 AM CDT 12/18/2024 5:54 PM CDT Narrative [facility] - 12/18/2024 7:27 PM CDT The [employer] Xpert Xpress MVP test detects DNA targets [...] this test have been verified by the [facility] Laboratory. us Rima Diana MD LAB MICROBIOLOGY - GENERA L ORDERABLES Final Result [facility] [address] [facility] Department [place] [address] * N. gonorrhoeae/C. trachomatis Amplification Vaginal (12/05/2024 10:35 AM CDT) Pathologist [facility] C. trachomatis Not Detected [facility] Comment:Testing performed by : [facility], [address] [place]., [address] N. gonorrhoeae Not Detected [facility] Comment: Interpretive Data This assay detects Chlamydia trachomatis and Neisseria gonorrhoeae by nucleic acid amplification testing (NAAT). This assay has been cleared by the [place] Food and Drug administration. The performance characteristics of this test have been verified by the [facility] Molecular Infectious Disease laboratory. The performance characteristics of this test have not been evaluated in individuals less than 14 years of age. Current Interpretive Data was last revised on 2023. Testing performed by: [facility], [address] [place]., [address] Vaginal (None) 12/05/2024 10 :35 AM CDT 12/05/2024 7:05 PM CDT Rima Diana MD LAB MICROBIOLOGY - GENERA L ORDERABLES Final Result [facility] [address] [facility] Department [place] [address] [facility] * (ABNORMAL) Vaginitis panel Vaginal (12/05/2024 10:35 AM CDT) Pathologist [facility] Bacterial Vaginosis Not Detected Not Detected Comment: A negative result does not preclude a possible infection. Results should be considered in conjunction with clinical presentation to determine the disease status. Testing performed by: [address] [address] Roseanne group Detected(A) Not Detected [facility] Comment: Roseanne species can be present as commensal organisms in women; results should be considered in conjunction with clinical presentation to determine the disease status. Testing performed by: [address] [address] Roseanne glabrata/ krusei Not Detected Not Detected [facility] Comment:Testing performed by : [address] [address] Trichomonas DNA Not Detected Not Detected [facility] Comment:Testing performed by : [address] [place]., [address] Vaginal 12/05/2024 10:3 5 AM CDT 12/05/2024 2:36 PM CDT [facility] GEORGINA - 12/05/2024 4:30 PM CDT [...] this test have been verified by the [facility] Laboratory. Rima Diana MD LAB MICROBIOLOGY - GENERA L ORDERABLES Final Result [facility]GIN[facility] [address] [facility] Department [place] [address] * (ABNORMAL) Urine culture Urine, [...] allergic patients, please contact the laboratory at [phone] to request susceptibility testing * * * [...] periurethral lacey. (.) Comment:Testing performed by : [facility], [address] [facility], [place]., [address] Organism (CLINICALLY INSIGNIFICANT GROWTH [facility] Organism STREPTOCOCCUS AGALACTIAE (GROUP B STREPTOCOCCI) [facility] Urine, clean voided 12/05/2024 10:35 AM CDT 12/05/2024 6:53 PM CDT Narrative [facility] - 12/07/2024 12:31 AM CDT Testing performed by [facility] Microbiology Laboratory ([phone]) Rima Diana MD LAB MICROBIOLOGY - GENERA L ORDERABLES Final Result [facility] [address] [facility] Department [place] [address] * Hepatitis panel, acute (02/19/2022 3:01 PM CDT) Hep A IgM Nonreactive Nonreactive [facility] Comment: Interpretive Data: If Hep A IgM Ab is reported as Equivocal, a new sample should be drawn in two weeks for testing. Current interpretive data was last revised on 19. Hep B core IgM Nonreactive Nonreactive [facility] Comment: Interpretive Data If HepB Core IgM Ab is reported as Equivocal, a new sample should be drawn in two weeks for testing. Current interpretive data was last revised on 19. Hep C Ab Nonreactive Nonreactive [facility] Comment: Interpretive Data Nonreactive: Antibodies to HCV [...] last revised on 2019. HepBsAg Nonreactive Nonreactive [facility] Blood 02/19/2022 3:01 PM CDT 02/19/2022 7:01 PM CDT Anita MILLS LAB MICROBIOLOGY - GENERAL ORDERABLES Final Result JONNER MH [address] [facility] Department [place] [address] from Last 3 Months or Most Recently Relevant to Health Maintenance Insurance ANTHEM ACCESS ANTHEM ACCESS ANTHEM ACCESS CHOICE Advance Directives For more information, please contact: [phone] * Full Code (Latest Code Status on File) Date Activated Date Inactivated Comments 10/10/2019 9:58 PM 10/11/2019 6:55 PM Care Teams Senior Instructor Relationship Specialty Start Date End Date Eleuterio Willard MD [address] [place] [address] [facility] [place] [address] PCP - General Family Medicine 04/03/21 Audie Dominguez, DPT [address] [facility] [place] [address] [facility] [place] [address] Physical Therapist Physical Therapy 09/08/19
--- OUTSIDE RECORDS SUMMARY | 2025-02-09 06:53 | XMS_ITS | Encounter Summary ---
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 Author CCM Chronic Pain Care Plan Chronic Care Management No change(07/12 9:03 AM LABORER CONSTRUCTION OR LEAK GANG) No Pamella Finley, LEANNA Note: Problem: Chronic Pain Goals: 1. Minimize further functional decline 2. Maximize quality of life 3. Control pain Strategies: - Activity/exercise program recommendation - Conservative stepwise pain medicine strategy with multi-disciplinary approach - Recommend healthy lifestyle strategies and compensatory methods as needed documented as of this encounter Visit Diagnoses Not on filedocumented in this encounter Care Teams Ceo Relationship Specialty Start Date End Date Eleuterio Willard MD [address] [facility] [address] [place] [address] PCP - General Family Medicine 04/03/21 Audie Dominguez DPT [address] [facility] [address] [place] [address] Physical Therapist Physical Therapy 09/08/19 documented as of this encounter
--- OUTSIDE RECORDS SUMMARY | 2025-02-09 06:53 | XMS_ITS | Clinical Summary ---
Author Organization [facility] Address [address] [place] [address] Phone Care Team Providers Care Exposure Machine Operator Name Role Phone Unavailable Primary Care Provider [...]
--- OUTSIDE RECORDS SUMMARY | 2025-02-09 06:53 | XMS_ITS | Clinical Summary ---
Author Organization [facility] Address [address] [address] [place] [address] Phone Care Team Providers Care Senior Policy Associate Name Role Phone Unavailable Primary Care Provider Unavailabl e Social History Tobacco Use Types Packs/Day Years Used Date Smoking Tobacco: Never Assessed Comments Unknown Sex and Gender Information Value Date Recorded Sex Assigned at Not on file Legal Sex Female 9:09 AM TURNER OFF Gender Identity Not on file Sexual Orientation [...]
--- OUTSIDE RECORDS SUMMARY | 2025-02-09 06:53 | XMS_ITS | Clinical Summary ---
Author Organization [facility] Address [facility]ly [facility] [place] [address] Care Team Providers Care Manager Science Name Role Phone Audie DominguezFranky DPT Unavailable [phone] Eleuterio Willard MD Primary Care Provider [phone] Allergies No known active allergies Medications CALCIUM [...] & Plan (01/01/2022 4:18 PM CDT): New [id number] urine test + for blood, likely menstrual, [...] Description 12/27/2024 2:15 PM CDT Office Visit [facility] Family Medicine at [address] [place] [address] Eleuterio Willard MD Class 3 severe obesity due to excess calories without serious comorbidity with body mass index (BMI) of 40.0 to 44.9 in adult ([facility]) (Primary Dx) 12/19/2024 Orders Only [facility] Obstetrical Gynecology [address] [place] [address] [address] [place] [phone] Rima Diana MD 12/18/2024 1:39 PM CDT - 12/18/2024 11:59 PM CDT Hospital Encounter [facility] Office Building [address] [place] [address] Well woman exam with routine gynecological exam; Vaginal itching; Screening for STDs (sexually transmitted diseases) Discharge Disposition: Discharge to home or self care 12/18/2024 11:00 AM CDT Office Visit [facility] Obstetrical Gynecology [address] [place] [phone] Rima Diana MD Well woman exam with routine gynecological exam (Primary Dx); Vaginal itching; Screening for STDs (sexually transmitted diseases) 12/18/2024 Results Follow-Up [facility] Obstetrical Gynecology [address] [place] [phone] Rima Diana MD Vaginitis panel Vaginal, Pap and High Risk HPV and Genotyping (Cytology Component) 12/06/2024 Results Follow-Up [facility] Obstetrical Gynecology [address] [place] [address] [address] [place] [phone] Rima Diana MD Urine culture Urine, clean voided, N. gonorrhoeae/C. trachomatis Amplification Vaginal, Vaginitis panel Vaginal 12/05/2024 11:24 AM CDT - 12/05/2024 11:59 PM CDT Hospital Encounter [facility] Medical Office Building [address] [place] [address] Vaginal itching Discharge Disposition: Discharge to home or self care 12/05/2024 10:00 AM CDT Clinical Support [facility] Obstetrical Gynecology [address] [place] [phone] Vaginal itching (Primary Dx) 11/23/2024 Telephone [facility] Family Medicine at [place] [address] [facility] [address] [place] [phone] Eleuterio Willard MD Prior Auth (PA on [...] on file Legal Sex Female 7:33 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 Gender Identity Female 08/12/2021 12:04 PM MAP PLOTTER Sexual Orientation Straight 08/12/2021 12 :04 PM MAP PLOTTER Obstetrics History Para Term AB IAB SAB [...] Chronic Care Management No change(07/12 9:03 AM MAP PLOTTER) No Pamella Finley, LEANNA Note: Problem: Chronic [...] HPV HR 16 Not Detected Not Detected [facility] Comment:Testing performed by : [facility], [address] [place]., [address] HPV HR 18 Not Detected Not Detected [place] Comment:Testing performed by : [facility], [address] [place]., [address] HPV HR Non 16/18 Not Detected Not [...] this test have been verified by the [facility] Molecular Infectious Disease laboratory. Correlate with separately reported cytology results, as applicable. Interpretive data last revised 23 Testing performed by: [facility], [address] [place]., [address] Endocervical 12/18/2024 11:3 5 AM CDT 12/19/2024 8:49 AM CDT Narrative [facility] - 12/19/2024 7:06 PM CDT Clinical history and diagnosis->screening Testing type->Screening Last menstrual period (date if known)->12/01/24 Rima Diana MD LAB BODY FLUIDS AND STOOL S ORDERABLES Final Result [facility] [address] [facility] Department [place] [address] [facility] * Pap and High Risk HPV and Genotyping (Cytology Component) (12/18/2024 11:35 AM CDT) Thin prep (Pap test) 12/18/2024 11:35 AM CDT 12/19/2024 8:06 AM CD[address] PATHOLOGY [facility] - 12/26/2024 9:09 AM CDT EPIC results best viewed via link to PDF [facility] [place] [address] Note to Patients: This report may contain [...] Gender: Lu : 1985 (Age: 39) Address: [address] [place] [address] Hospital #: [id number] Service: DEFAULT Location: Patient Type: [facility] SPECIMEN Taken: 12/18/2024 Received: 12/19/2024 [...] this test have been verified by the [facility] Molecular Infectious Disease laboratory. Correlate with reported cytology results, as applicable. Interpretive data last revised 23 [facility]/12/26/2024 09:09 DEN [place](ASCP) Report Electronically Reviewed [...] clinical information and biopsy results as indicated. [facility] Clinical Laboratory Improvement Amendments (CLIA) mandate that cytologic and histologic results be correlated for laboratory quality compliance manager & improvement standards. FOR ALL HIGH-GRADE CASES [...] determined by the Surgical Pathology Department at [facility] as part of an ongoing quality coordinator program and in compliance with federally mandated [...] determined by the Surgical Pathology Department of [facility]. It has not been cleared or approved by the U. S. Food and Drug Administration. us Rima Diana MD LAB CYTOLOGY ORDERABLES F inal Result PATHOLOGY [facility] * N. gonorrhoeae/C. trachomatis Amplification Endocervical (12/18/2024 11:35 AM CDT) C. trachomatis Not Detected [facility] Comment:Testing performed by : [facility], [address] [place]., [address] N. gonorrhoeae Not Detected [facility] Comment: Interpretive Data This assay detects Chlamydia trachomatis and Neisseria gonorrhoeae by nucleic acid amplification testing (NAAT). This assay has been cleared by the [place] Food and Drug administration. The performance characteristics of this test have been verified by the [facility] Molecular Infectious Disease laboratory. The performance characteristics of this test have not been evaluated in individuals less than 14 years of age. Current Interpretive Data was last revised on 2023. Testing performed by: [facility], [address] [place]., [address] Endocervical (None) 12/19/19 11:35 AM CDT 12/18/2024 9:17 PM CDT us Rima Diana MD LAB MICROBIOLOGY - GENERA L ORDERABLES Final Result Performing Organization Address City/Special Care Hospital/ZIP Co de Phone Number [place] Department [place] [address] [facility] * (ABNORMAL) Vaginitis panel Vaginal (12/18/2024 11:35 AM CDT) Bacterial Vaginosis Not Detected Not Detected Comment: A negative result does not preclude a possible infection. Results should be considered in conjunction with clinical presentation to determine the disease status. Testing performed by: [address] [address] Roseanne group Detected(A) Not Detected [facility] Comment: Roseanne species can be present as commensal organisms in women; results should be considered in conjunction with clinical presentation to determine the disease status. Testing performed by: [address] [address] Roseanne glabrata/ krusei Not Detected Not Detected [facility] Comment:Testing performed by : [address] [address] Trichomonas DNA Not Detected Not Detected [place] Comment:Testing performed by : [address] [address] Vaginal 12/18/2024 11:3 5 AM CDT 12/18/2024 5:[address] [facility] - 12/18/2024 7:27 PM CDT The Cepheid [...] this test have been verified by the [facility]. Rima Diana MD LAB MICROBIOLOGY - GENERA L ORDERABLES Final Result [place] [address] [facility] Department [place] [address] * N. gonorrhoeae/C. trachomatis Amplification Vaginal (12/05/2024 10:35 AM CDT) Pathologist [facility] C. trachomatis Not Detected [facility] Comment:Testing performed by : [facility], [address] [place] [address]., [address] N. gonorrhoeae Not Detected [place] Comment: Interpretive Data This assay detects Chlamydia trachomatis and Neisseria gonorrhoeae by nucleic acid amplification testing (NAAT). This assay has been cleared by the [place] Food and Drug administration. The performance characteristics of this test have been verified by the [facility] Molecular Infectious Disease laboratory. The performance characteristics of this test have not been evaluated in individuals less than 14 years of age. Current Interpretive Data was last revised on 2023. Testing performed by: [facility], [address] [place] [address]., [address] Vaginal (None) 12/05/2024 10 :35 AM CDT 12/05/2024 7:05 PM CDT Rima Diana MD LAB MICROBIOLOGY - GENERA L ORDERABLES Final Result Performing Organization Address [facility] Co de Phone Number JON[address] Department [place] [address] [facility] * (ABNORMAL) Vaginitis panel Vaginal (12/05/2024 10:35 AM CDT) Pathologist [facility] Bacterial Vaginosis Not Detected Not Detected Comment: A negative result does not preclude a possible infection. Results should be considered in conjunction with clinical presentation to determine the disease status. Testing performed by: [address] [address] Roseanne group Detected(A) Not Detected [facility] Comment: Roseanne species can be present as commensal organisms in women; results should be considered in conjunction with clinical presentation to determine the disease status. Testing performed by: [address] [address] Roseanne glabrata/ krusei Not Detected Not Detected [facility] Comment:Testing performed by : [facility], [address] [place] [address]., [address] Trichomonas DNA Not Detected Not Detected [facility] Comment:Testing performed by : [facility], [address] [place] [address]., [address] Vaginal 12/05/2024 10:3 5 AM CDT 12/05/2024 2:36 PM CDT Narrative [facility] - 12/05/2024 4:30 PM CDT The [employer] Xpert Xpress MVP test detects DNA targets [...] this test have been verified by the [facility]. Rima Diana MD LAB MICROBIOLOGY - GENERA L ORDERABLES Final Result [place] [address] [facility] Department [place] [address] * (ABNORMAL) Urine culture Urine, [...] allergic patients, please contact the laboratory at [phone] to request susceptibility testing * * * [...] periurethral lacey. (.) Comment:Testing performed by : [facility], [address] [place]., [address] Organism (CLINICALLY INSIGNIFICANT GROWTH [facility] Organism STREPTOCOCCUS AGALACTIAE (GROUP B STREPTOCOCCI) [facility] Urine, clean voided 12/05/2024 10:35 AM CDT 12/05/2024 6:53 PM CDT Narrative [facility] - 12/07/2024 12:31 AM CDT Testing performed by [facility] Microbiology Laboratory ([phone]) Rima Diana MD LAB MICROBIOLOGY - GENERA L ORDERABLES Final Result [facility] [address] [facility] Department [place] [address] * Hepatitis panel, acute (02/19/2022 3:01 PM CDT) Hep A IgM Nonreactive Nonreactive [facility] Comment: Interpretive Data: If Hep A IgM Ab is reported as Equivocal, a new sample should be drawn in two weeks for testing. Current interpretive data was last revised on 19. Hep B core IgM Nonreactive Nonreactive [facility] Comment: Interpretive Data If HepB Core IgM Ab is reported as Equivocal, a new sample should be drawn in two weeks for testing. Current interpretive data was last revised on 19. Hep C Ab Nonreactive Nonreactive [facility] Comment: Interpretive Data Nonreactive: Antibodies to [...] MICROBIOLOGY - GENERAL ORDERABLES Final Result [place] [address] [facility] Department [place] [address] from Last 3 Months or Most Recently Relevant to Health Maintenance Insurance [employer] ACCESS [employer] ACCESS [facility] ACCESS CHOICE Advance Directives For more information, please contact: [phone] * Full Code (Latest Code Status on File) Date Activated Date Inactivated Comments 10/10/2019 9:58 PM 10/11/2019 6:55 PM Care Teams Manager Science Relationship Specialty Start Date End Date Eleuterio Willard MD [address] [facility] [address] [address] PCP - General Family Medicine 04/03/21 Audie Dominguez, DPT [address] [facility] [address] [address] Physical Therapist Physical Therapy 09/08/19
--- OUTSIDE RECORDS SUMMARY | 2025-02-09 06:53 | XMS_ITS | Encounter Summary ---
Author Organization [facility] Healthcare Address [address] [place] [address] Care Team Providers Care Fire Fighter Airport Name Role Phone Alonzo Gibbons DO Primary Care Provider [phone] Audie Dominguez DPT Unavailable [phone] No, Physician Primary Care Provider [phone] Alonzo Gibbons DO Primary Care Provider [phone] Eleuterio Willard MD Primary Care Provider [phone] Xochilt Kruse NP Primary Care Provider [phone] Eleuterio Willard MD Primary Care Provider [phone] Reason for Visit * Reason Onset Date Comments Prior Auth 09/06/2019 Gabapentin 300mg Encounter Details Date Type Department Care Team (Late st Contact Info) Description 09/06/2019 Telephone [facility] [place] [facility] [address] [facility] Advanced Medicine [address] [place] [address] Jana Max MD [address] [place] [address] Prior Auth (Gabapentin 300mg) Social History Tobacco Use Types Packs/Day Years Used Date Smoking Tobacco: Never Smokeless Tobacco: Never Alcohol Use Standard Drinks/Week Comments Yes 0 (1 standard drink = 0.6 oz pur e alcohol) rarely Comments No Sex and Gender Information Value Date Recorded Sex Assigned at Not on file 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 Author CCM Chronic Pain Care Plan Chronic Care Management No change(07/12 9:03 AM AIRCRAFT ORDNANCE SYSTEMS MECHANIC) No Pamella Finley, LEANNA Note: Problem: Chronic Pain Goals: 1. Minimize further functional decline 2. Maximize quality of life 3. Control pain Strategies: - Activity/exercise program recommendation - Conservative stepwise pain medicine strategy with multi-disciplinary approach - Recommend healthy lifestyle strategies and compensatory methods as needed documented as of this encounter Visit Diagnoses Not on filedocumented in this encounter Care Teams Fire Fighter [employer] Relationship Specialty Start Date End Date Alonzo Gibbons DO PCP - General Internal Medicine 07/05/19 10/04/19 No, Physician PCP - General 10/05/19 10/09/19 Alonzo Gibbons DO PCP - General 10/10/19 03/20/20 Eleuterio Willard MD PCP - General Family Medicine 03/21/20 06/05/20 Xochilt Kruse NP PCP - General 06/06/20 04/02/21 Eleuterio Willard MD PCP - General Family Medicine 04/03/21 Audie Dominguez DPT 4[address] [facility] [address] [place] [address] Physical Therapist Physical Therapy 09/08/19 documented as of this encounter
--- OUTSIDE RECORDS SUMMARY | 2025-02-09 06:53 | XMS_ITS | Clinical Summary ---
Author Organization [facility] [employer] Address [address] [facility] [place] [address] Care Team Providers Care Statistical Modeler Name Role Phone Unavailable Primary Care Provider Unavailabl e Source Comments [facility] [employer]non-owned Affiliates and Associated Physician Practices is amultiple site organization consisting of ambulatory clinics and hospital sitesin [place], [place], [place] and [place]. This disclosure is being madepursuant to the Care Everywhere program and may not contain all information available regarding this patient. Last updated 18.[facility] [employer] Allergies No known active allergies Medications * [...] on file Legal Sex Female 6:29 AM OPERATIONS SUPERVISOR Gender Identity Not on file Sexual Orientation Not on file Last Filed Vital Signs Vital Sign Reading Time Taken Comments Blood Pressure 132/82 08/16/2012 3:16 PM OPERATIONS SUPERVISOR Pulse 90 08/16/2012 3:16 PM OPERATIONS SUPERVISOR Temperature 36.8 C (98.3 F) 08/16/2012 3:16 PM OPERATIONS SUPERVISOR Respiratory Rate 18 08/16/2012 3:16 PM OPERATIONS SUPERVISOR Oxygen Saturation 100% 08/16/2012 8:00 AM OPERATIONS SUPERVISOR Inhaled Oxygen Concentration - - Weight 128.8 kg (284 lb) 08/15/2012 4:37 PM OPERATIONS SUPERVISOR Height 167.6 cm (5' 6) 08/15/2012 4:37 PM OPERATIONS SUPERVISOR Body Mass Index 45.84 08/15/2012 4:37 PM OPERATIONS SUPERVISOR Plan of Treatment Health Maintenance Due Date [...]
== END 2025-02-09 09:29 | disposition home or self-care (01) ==
PROVIDERS: Emergency Provider Emergency Medicine; PCP Family Medicine
DX: K52.9 Noninfective gastroenteritis and colitis, unspecified (principal)
CPT/HCPCS: 36415; 80053; 81001; 81025; 83690; 85025; 96361; 96374; 96375; 99284; J2405; J7030